=== PATIENT | male | born 1970 | race African-American/Black ===

== ENCOUNTER 2016-06-27 10:41 | Inpatient (IN) | payer OTHER ==
[2016-06-27 11:39] VITALS: BMI 35.2
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
--- NOTE | 2016-06-27 14:06 | PN ---
[facility] Progress Note Note: attempted to reach [facility] for further information unsuccessful
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
[2016-06-27] MEDS ORDERED: LOPERAMIDE HCL 2 MG CAPSULE PO PRN (19:40)
[2016-06-27] MEDS ORDERED: P-EPHED 60MG/TRIPROLIDI 2.5MG TABLET PO PRN (19:40)
[2016-06-27] MEDS ORDERED: hydrOXYzine PAMOATE 50 MG CAPSULE (FP) PO PRN (19:40)
[2016-06-27] MEDS ORDERED: MAG HYDROX/AL HYDROX/SIMETH 30 ML UNIT-DOSE CUP PO PRN (19:40)
[2016-06-27] MEDS ORDERED: MAGNESIUM HYDROX 2400MG/30ML ORAL SUSPENSION 30 ML CUP PO PRN (19:40)
[2016-06-27] MEDS ORDERED: guaiFENesin/D-METHORPHAN HB 10 ML UNIT-DOSE CUPS PO PRN (19:40)
[2016-06-27] MEDS ORDERED: MAGNESIUM CITRATE 300 ML BOTTLE PO PRN (19:40)
[2016-06-27] MEDS ORDERED: diazePAM 5 MG TABLET PO ONE (19:40)
[2016-06-27] MEDS ORDERED: MENTHOL/PHENOL 1 EACH UD MM PRN (19:40)
[2016-06-27] MEDS ORDERED: ALBUTEROL SO4 6.7 GM HFA INHALER IH PRN (19:43)
[2016-06-27] MEDS: LISINOPRIL 10 MG TABLET (FP) PO SCH (20:17)
[2016-06-27] MEDS: amLODIPine BESYLATE 10 MG TABLET (FP) PO SCH (20:17)
[2016-06-27] MEDS: THIAMINE HCL 100 MG TABLET (FP) PO SCH (22:42)
[2016-06-27] MEDS: BUDESONIDE/FORMETEROL FUMARATE 80/4.5 mcg INHALER IH SCH (22:42)
[2016-06-27] MEDS: MONTELUKAST NA 10 MG TABLET PO SCH (22:43)
[2016-06-27] MEDS: diazePAM 5 MG TABLET PO SCH (22:43)
[2016-06-27] MEDS: diphenhydrAMINE HCL 50 MG CAPSULE PO PRN (22:45)
[2016-06-27] MEDS: CEPHALEXIN MONOHYDRATE 500 MG CAPSULE (UD) PO SCH (23:23)
[2016-06-27] MEDS: OXYMETAZOLINE 0.05% NASAL SOLUTION 15 ML BOTTLE NS SCH (23:26)
[2016-06-27] MEDS: CIPROFLOXACIN HCL 0.3% OPHTH 2.5ML BOTTLE OU SCH (23:27)
[2016-06-28 01:12] LABS: URINE APPEARANCE CLEAR; URINE BILIRUBIN NEGATIVE (NEGATIVE); URINE BLOOD NEGATIVE (NEGATIVE); URINE COLOR LTYELLOW; URINE GLUCOSE (UA) NEGATIVE (NEGATIVE); URINE KETONE TRACE (NEGATIVE); URINE LEUK ESTERASE NEGATIVE (NEGATIVE); URINE NITRITE NEGATIVE (NEGATIVE); URINE PROTEIN NEGATIVE (NEGATIVE); URINE UROBILINOGEN 2.0 E.U/dl E.U./dl (0.2-1.0)
[2016-06-28] MEDS: CIPROFLOXACIN HCL 0.3% OPHTH 2.5ML BOTTLE OU SCH ×4 (02:30→18:05)
[2016-06-28] MEDS: diazePAM 5 MG TABLET PO SCH ×3 (05:43→22:43)
[2016-06-28] MEDS: CEPHALEXIN MONOHYDRATE 500 MG CAPSULE (UD) PO SCH ×3 (05:43→18:01)
[2016-06-28 09:46] LABS: MCH 30.9 pg (25.7-33.7); MCHC 34.3 g/dl (32.0-35.9); MEAN PLT VOLUME 10.2 fl (7.5-11.1); PLATELET COUNT 193 K/MM3 (134-434); RDW 13.2 % (11.9-15.9); WHITE BLOOD COUNT 9.4 K/mm3 (4.0-10.0)
[2016-06-28 10:26] LABS: ALBUMIN 3.6 g/dl (3.4-5.0); ALK PHOS 103 U/L (45-117); ANION GAP 15 (8-16); CALCIUM 8.7 mg/dL (8.5-10.1); CO2 24 mmol/L (21-32); COCKROFT - GAULT 222.29; CREATININE 0.7 mg/dL (0.7-1.3); GLUCOSE,RANDOM 92 mg/dL (74-106); SGOT/AST 32 U/L (15-37); SGPT/ALT 31 U/L (12-78); TOT PROT 6.9 g/dl (6.4-8.2)
[2016-06-28] MEDS: PRENATAL VITAMINS W/ FOLIC ACID TABLET (FP) PO SCH (10:54)
[2016-06-28] MEDS: ASPIRIN 81 MG CHEWABLE TABLETS PO SCH (10:54)
[2016-06-28] MEDS: HALOPERIDOL 5 MG TABLET (FP) PO SCH ×2 (10:54→22:42)
[2016-06-28] MEDS: amLODIPine BESYLATE 10 MG TABLET (FP) PO SCH (10:54)
[2016-06-28] MEDS: LISINOPRIL 10 MG TABLET (FP) PO SCH (10:55)
[2016-06-28] MEDS: BENZTROPINE MESYLATE 1 MG TABLET (FP) PO SCH ×2 (10:55→22:43)
[2016-06-28] MEDS: BUDESONIDE/FORMETEROL FUMARATE 80/4.5 mcg INHALER IH SCH ×2 (10:56→22:43)
--- NOTE | 2016-06-28 11:03 | PN ---
[facility] CIWA - CIWA Score Nausea/Vomitin-No Nausea/No Vomiting Muscle Tremors: 4-Moderate,w/Arms Extend Anxiety: 4-Mod. Anxious/Guarded Agitation: 4-Moderately Restless Paroxysmal Sweats: 1-Minimal Palms Moist Orientation: 0-Oriented Tacttile Disturbances: 3-Moderate Itch/Numb/Burn Auditory Disturbances: 0-None Visual Disturbances: 0-None Headache: 0-None Present CIWA-Ar Total Score: 16 [facility] Progress Note (SOAP) Subjective: ANXIETY,TEARY EYES W/ C/O PAIN BOTH EYES. TREMORS,ANXIETY,INTERMITTENT SLEEP. Objective: 06/28/16 11:02 Vital Signs Temperature 97.1 F L 06/28/16 09:28 Pulse Rate 85 06/28/16 09:28 Respiratory Rate 18 06/28/16 09:28 Blood Pressure 130/87 06/28/16 09:28 O2 Sat by Pulse Oximetry (%) Laboratory Last Values WBC 9.4 K/mm3 (4.0-10.0) 06/28/16 06:00 RBC 4.03 M/mm3 (4.00-5.60) 06/28/16 06:00 Hgb 12.5 GM/dL (11.7-16.9) 06/28/16 06:00 Hct 36.3 % (35.4-49) 06/28/16 06:00 MCV 90.0 fl (80-96) 06/28/16 06:00 MCHC 34.3 g/dl (32.0-35.9) 06/28/16 06:00 RDW 13.2 % (11.9-15.9) D 06/28/16 06:00 Plt Count 193 K/MM3 (134-434) D 06/28/16 06:00 MPV 10.2 fl (7.5-11.1) D 06/28/16 06:00 Sodium 137 mmol/L (136-145) 06/28/16 06:00 Potassium 3.4 mmol/L (3.5-5.1) L 06/28/16 06:00 Chloride 98 mmol/L (98-107) 06/28/16 06:00 Carbon Dioxide 24 mmol/L (21-32) 06/28/16 06:00 Anion Gap 15 (8-16) 06/28/16 06:00 BUN 9 mg/dL (7-18) D 06/28/16 06:00 Creatinine 0.7 mg/dL (0.7-1.3) D 06/28/16 06:00 Creat Clearance w eGFR > 60 (>60) 06/28/16 06:00 POC Glucometer 140 UNITS (()) 06/28/16 05:44 Random Glucose 92 mg/dL (74-106) 06/28/16 06:00 Calcium 8.7 mg/dL (8.5-10.1) 06/28/16 06:00 Total Bilirubin 1.0 mg/dL (0.2-1.0) D 06/28/16 06:00 AST 32 U/L (15-37) D 06/28/16 06:00 ALT 31 U/L (12-78) D 06/28/16 06:00 Alkaline Phosphatase 103 U/L (45-117) 06/28/16 06:00 Total Protein 6.9 g/dl (6.4-8.2) 06/28/16 06:00 Albumin 3.6 g/dl (3.4-5.0) 06/28/16 06:00 Urine Color Ltyellow 06/27/16 23:02 Urine Appearance Clear 06/27/16 23:02 Urine pH 7.0 (5.0-8.0) 06/27/16 23:02 Ur Specific [place] 1.005 (1.001-1.035) 06/27/16 23:02 Urine Protein Negative (NEGATIVE) 06/27/16 23:02 Urine Glucose (UA) Negative (NEGATIVE) 06/27/16 23:02 Urine Ketones Trace (NEGATIVE) H 06/27/16 23:02 Urine Blood Negative (NEGATIVE) 06/27/16 23:02 Urine Nitrite Negative (NEGATIVE) 06/27/16 23:02 Urine Bilirubin Negative (NEGATIVE) 06/27/16 23:02 Urine Urobilinogen 2.0 e.u/dl E.U./dl (0.2-1.0) 06/27/16 23:02 Ur Leukocyte Esterase Negative (NEGATIVE) 06/27/16 23:02 Assessment: 06/28/16 11:03 WITHDRAWAL SX Plan: CONTINUE DETOX KDUR 20 MEQ PO BID DIRECTED CONTINUE EYE CARE WITH DROPS.
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
--- NOTE | 2016-06-28 11:47 | EKG ---
Test Reason : Blood Pressure : / mmHG Vent. Rate : 089 BPM Atrial Rate : 089 BPM P-R Int : 142 ms QRS Dur : 096 ms QT Int : 376 ms P-R-T Axes : 057 -11 000 degrees QTc Int : 457 ms NORMAL SINUS RHYTHM MODERATE VOLTAGE CRITERIA FOR LVH, MAY BE NORMAL VARIANT NONSPECIFIC T WAVE ABNORMALITY ABNORMAL ECG NO PREVIOUS ECGS AVAILABLE Confirmed by CIARRA RAY MD ([id number]) on 06/28/2016 11:46:28 AM Referred By: Confirmed By:CIARRA RAY MD
[2016-06-28] MEDS: OXYMETAZOLINE 0.05% NASAL SOLUTION 15 ML BOTTLE NS SCH ×2 (12:03→22:43)
[2016-06-28] MEDS: ACETAMINOPHEN 325 MG TABLET (FP) PO PRN (18:08)
[2016-06-28] MEDS: diazePAM 5 MG TABLET PO PRN (19:48)
[2016-06-28] MEDS: MIRTAZAPINE 15 MG TABLET (FP) PO SCH (22:42)
[2016-06-28] MEDS: MONTELUKAST NA 10 MG TABLET PO SCH (22:43)
[2016-06-28] MEDS: IBUPROFEN 600 MG TABLET (FP) PO PRN (22:44)
[2016-06-28] MEDS: THIAMINE HCL 100 MG TABLET (FP) PO SCH (23:47)
[2016-06-29] MEDS: CEPHALEXIN MONOHYDRATE 500 MG CAPSULE (UD) PO SCH ×5 (00:11→23:07)
[2016-06-29] MEDS: CIPROFLOXACIN HCL 0.3% OPHTH 2.5ML BOTTLE OU SCH ×5 (00:12→23:28)
[2016-06-29] MEDS: diazePAM 5 MG TABLET PO PRN (05:52)
[2016-06-29] MEDS: IBUPROFEN 600 MG TABLET (FP) PO PRN ×3 (05:53→17:58)
[2016-06-29] MEDS: BUDESONIDE/FORMETEROL FUMARATE 80/4.5 mcg INHALER IH SCH ×2 (09:51→22:48)
[2016-06-29] MEDS: diazePAM 5 MG TABLET PO SCH ×2 (09:51→22:49)
[2016-06-29] MEDS: PRENATAL VITAMINS W/ FOLIC ACID TABLET (FP) PO SCH (09:52)
[2016-06-29] MEDS: amLODIPine BESYLATE 10 MG TABLET (FP) PO SCH (09:52)
[2016-06-29] MEDS: BENZTROPINE MESYLATE 1 MG TABLET (FP) PO SCH ×2 (09:52→22:48)
[2016-06-29] MEDS: OXYMETAZOLINE 0.05% NASAL SOLUTION 15 ML BOTTLE NS SCH ×2 (09:52→22:47)
[2016-06-29] MEDS: ASPIRIN 81 MG CHEWABLE TABLETS PO SCH (09:52)
[2016-06-29] MEDS: HALOPERIDOL 5 MG TABLET (FP) PO SCH ×2 (09:54→22:48)
[2016-06-29] MEDS: LISINOPRIL 10 MG TABLET (FP) PO SCH (10:28)
--- NOTE | 2016-06-29 11:06 | PN ---
S CIWA - CIWA Score Nausea/Vomitin-No Nausea/No Vomiting Muscle Tremors: 3 Anxiety: 3 Agitation: 4-Moderately Restless Paroxysmal Sweats: 3 Orientation: 0-Oriented Tacttile Disturbances: 0-None Auditory Disturbances: 0-None Visual Disturbances: 0-None Headache: 0-None Present CIWA-Ar Total Score: 13 [facility] Progress Note (SOAP) Subjective: Anxiety,tremors,sweating,interrupted sleep,restless Objective: 06/29/16 11:05 Vital Signs - 8 hr 06/29/16 06/29/16 06/29/16 03:30 06:51 10:46 Temperature 97.2 F L 98.6 F Pulse Rate 85 80 Respiratory 18 18 18 Rate Blood Pressure 120/83 128/89 Laboratory Tests 06/27/16 06/27/16 06/28/16 13:37 23:02 05:44 WBC RBC Hgb Hct MCV MCHC RDW Plt Count MPV Sodium Potassium Chloride Carbon Dioxide Anion Gap BUN Creatinine Creat Clearance w eGFR POC Glucometer 89 140 Random Glucose Calcium Total Bilirubin AST ALT Alkaline Phosphatase Total Protein Albumin Urine Color Ltyellow Urine Appearance Clear Urine pH 7.0 Ur Specific [place] 1.005 Urine Protein Negative Urine Glucose (UA) Negative Urine Ketones Trace H Urine Blood Negative Urine Nitrite Negative Urine Bilirubin Negative Urine Urobilinogen 2.0 e.u/dl Ur Leukocyte Esterase Negative RPR Titer 06/28/16 06/28/16 06/28/16 06:00 06:00 06:00 WBC 9.4 RBC 4.03 Hgb 12.5 Hct 36.3 MCV 90.0 MCHC 34.3 RDW 13.2 D Plt Count 193 D MPV 10.2 D Sodium 137 Potassium 3.4 L Chloride 98 Carbon Dioxide 24 Anion Gap 15 BUN 9 D Creatinine 0.7 D Creat Clearance w eGFR > 60 POC Glucometer Random Glucose 92 Calcium 8.7 Total Bilirubin 1.0 D AST 32 D ALT 31 D Alkaline Phosphatase 103 Total Protein 6.9 Albumin 3.6 Urine Color Urine Appearance Urine pH Ur Specific [place] Urine Protein Urine Glucose (UA) Urine Ketones Urine Blood Urine Nitrite Urine Bilirubin Urine Urobilinogen Ur Leukocyte Esterase RPR Titer Nonreactive labs noted Assessment: 06/29/16 11:06 Withdrawal sx. Plan: Continue detox
[2016-06-29] MEDS: POTASSIUM CHLORIDE TABS 20 MEQ TABLET.ER (FP) PO SCH (12:41)
[2016-06-29] MEDS: THIAMINE HCL 100 MG TABLET (FP) PO SCH (22:47)
[2016-06-29] MEDS: MONTELUKAST NA 10 MG TABLET PO SCH (22:48)
[2016-06-29] MEDS: MIRTAZAPINE 15 MG TABLET (FP) PO SCH (22:48)
[2016-06-30] MEDS: CEPHALEXIN MONOHYDRATE 500 MG CAPSULE (UD) PO SCH ×4 (05:24→23:02)
[2016-06-30] MEDS: diazePAM 5 MG TABLET PO PRN ×2 (05:24→19:27)
[2016-06-30] MEDS: CIPROFLOXACIN HCL 0.3% OPHTH 2.5ML BOTTLE OU SCH ×4 (06:45→23:02)
[2016-06-30] MEDS: POTASSIUM CHLORIDE TABS 20 MEQ TABLET.ER (FP) PO SCH (10:51)
[2016-06-30] MEDS: diazePAM 5 MG TABLET PO SCH ×2 (10:51→22:34)
[2016-06-30] MEDS: PRENATAL VITAMINS W/ FOLIC ACID TABLET (FP) PO SCH (10:52)
[2016-06-30] MEDS: amLODIPine BESYLATE 10 MG TABLET (FP) PO SCH (10:52)
[2016-06-30] MEDS: BENZTROPINE MESYLATE 1 MG TABLET (FP) PO SCH ×2 (10:52→22:34)
[2016-06-30] MEDS: HALOPERIDOL 5 MG TABLET (FP) PO SCH ×2 (10:52→22:34)
[2016-06-30] MEDS: LISINOPRIL 10 MG TABLET (FP) PO SCH (10:52)
[2016-06-30] MEDS: ASPIRIN 81 MG CHEWABLE TABLETS PO SCH (10:52)
[2016-06-30] MEDS: IBUPROFEN 600 MG TABLET (FP) PO PRN ×2 (10:54→19:27)
[2016-06-30] MEDS: BUDESONIDE/FORMETEROL FUMARATE 80/4.5 mcg INHALER IH SCH ×2 (10:55→23:01)
[2016-06-30] MEDS: OXYMETAZOLINE 0.05% NASAL SOLUTION 15 ML BOTTLE NS SCH ×2 (10:56→22:33)
--- NOTE | 2016-06-30 17:51 | PN ---
[facility] Progress Note (SOAP) Subjective: H/A, Tremors. Objective: PT. A & O X 2 (DISORIENTED ABOUT DAY /DATE). 06/30/16 17:50 Vital Signs Temperature 96 F L 06/30/16 11:42 Pulse Rate 91 H 06/30/16 11:42 Respiratory Rate 19 06/30/16 11:42 Blood Pressure 131/88 06/30/16 11:42 O2 Sat by Pulse Oximetry (%) Laboratory Last Values WBC 9.4 K/mm3 (4.0-10.0) 06/28/16 06:00 RBC 4.03 M/mm3 (4.00-5.60) 06/28/16 06:00 Hgb 12.5 GM/dL (11.7-16.9) 06/28/16 06:00 Hct 36.3 % (35.4-49) 06/28/16 06:00 MCV 90.0 fl (80-96) 06/28/16 06:00 MCHC 34.3 g/dl (32.0-35.9) 06/28/16 06:00 RDW 13.2 % (11.9-15.9) D 06/28/16 06:00 Plt Count 193 K/MM3 (134-434) D 06/28/16 06:00 MPV 10.2 fl (7.5-11.1) D 06/28/16 06:00 Sodium 137 mmol/L (136-145) 06/28/16 06:00 Potassium 3.7 mmol/L (3.5-5.1) 06/30/16 08:00 Chloride 98 mmol/L (98-107) 06/28/16 06:00 Carbon Dioxide 24 mmol/L (21-32) 06/28/16 06:00 Anion Gap 15 (8-16) 06/28/16 06:00 BUN 9 mg/dL (7-18) D 06/28/16 06:00 Creatinine 0.7 mg/dL (0.7-1.3) D 06/28/16 06:00 Creat Clearance w eGFR > 60 (>60) 06/28/16 06:00 POC Glucometer 140 UNITS (()) 06/28/16 05:44 Random Glucose 92 mg/dL (74-106) 06/28/16 06:00 Calcium 8.7 mg/dL (8.5-10.1) 06/28/16 06:00 Total Bilirubin 1.0 mg/dL (0.2-1.0) D 06/28/16 06:00 AST 32 U/L (15-37) D 06/28/16 06:00 ALT 31 U/L (12-78) D 06/28/16 06:00 Alkaline Phosphatase 103 U/L (45-117) 06/28/16 06:00 Total Protein 6.9 g/dl (6.4-8.2) 06/28/16 06:00 Albumin 3.6 g/dl (3.4-5.0) 06/28/16 06:00 Urine Color Ltyellow 06/27/16 23:02 Urine Appearance Clear 06/27/16 23:02 Urine pH 7.0 (5.0-8.0) 06/27/16 23:02 Ur Specific [place] 1.005 (1.001-1.035) 06/27/16 23:02 Urine Protein Negative (NEGATIVE) 06/27/16 23:02 Urine Glucose (UA) Negative (NEGATIVE) 06/27/16 23:02 Urine Ketones Trace (NEGATIVE) H 06/27/16 23:02 Urine Blood Negative (NEGATIVE) 06/27/16 23:02 Urine Nitrite Negative (NEGATIVE) 06/27/16 23:02 Urine Bilirubin Negative (NEGATIVE) 06/27/16 23:02 Urine Urobilinogen 2.0 e.u/dl E.U./dl (0.2-1.0) 06/27/16 23:02 Ur Leukocyte Esterase Negative (NEGATIVE) 06/27/16 23:02 RPR Titer Nonreactive (NONREACTIVE) 06/28/16 06:00 LABS NOTED. Assessment: 06/30/16 17:51 WITHDRAWAL SYMPTOMS. Plan: CONTINUE DETOX. ADVISED PATIENT TO FOLLOW-UP WITH [facility] REHAB MEDICAL PROVIDER AFTER DISCHARGE FROM DETOX FOR GENERAL MEDICAL ASSESSMENT AND FOR ABNORMAL ADMISSION LAB VALUES.
[2016-06-30] MEDS: THIAMINE HCL 100 MG TABLET (FP) PO SCH (22:34)
[2016-06-30] MEDS: MIRTAZAPINE 15 MG TABLET (FP) PO SCH (22:34)
[2016-06-30] MEDS: MONTELUKAST NA 10 MG TABLET PO SCH (22:34)
[2016-06-30] MEDS: diphenhydrAMINE HCL 50 MG CAPSULE PO PRN (22:36)
[2016-07-01] MEDS: CEPHALEXIN MONOHYDRATE 500 MG CAPSULE (UD) PO SCH ×4 (05:02→23:47)
[2016-07-01] MEDS: IBUPROFEN 600 MG TABLET (FP) PO PRN (05:03)
[2016-07-01] MEDS: CIPROFLOXACIN HCL 0.3% OPHTH 2.5ML BOTTLE OU SCH ×4 (05:06→23:47)
[2016-07-01] MEDS ORDERED: diazePAM 5 MG TABLET PO SCH (10:00)
[2016-07-01] MEDS: BUDESONIDE/FORMETEROL FUMARATE 80/4.5 mcg INHALER IH SCH ×2 (10:36→22:36)
[2016-07-01] MEDS: PRENATAL VITAMINS W/ FOLIC ACID TABLET (FP) PO SCH (10:36)
[2016-07-01] MEDS: BENZTROPINE MESYLATE 1 MG TABLET (FP) PO SCH ×2 (10:36→22:30)
[2016-07-01] MEDS: HALOPERIDOL 5 MG TABLET (FP) PO SCH ×2 (10:36→22:35)
[2016-07-01] MEDS: POTASSIUM CHLORIDE TABS 20 MEQ TABLET.ER (FP) PO SCH (10:36)
[2016-07-01] MEDS: LISINOPRIL 10 MG TABLET (FP) PO SCH ×2 (10:36→22:35)
[2016-07-01] MEDS: ASPIRIN 81 MG CHEWABLE TABLETS PO SCH (10:36)
[2016-07-01] MEDS: amLODIPine BESYLATE 10 MG TABLET (FP) PO SCH (10:36)
[2016-07-01] MEDS: OXYMETAZOLINE 0.05% NASAL SOLUTION 15 ML BOTTLE NS SCH ×2 (10:37→22:34)
--- NOTE | 2016-07-01 12:17 | PN ---
S Progress Note (SOAP) Subjective: nausea, sweats, interrupted sleep, anxiety, tremors a and o x3 Objective: 07/01/16 12:16 Vital Signs - 24 hr 06/30/16 06/30/16 07/01/16 18:09 21:57 00:30 Temperature 98.3 F 98.7 F Pulse Rate 78 93 H Respiratory 18 18 18 Rate Blood Pressure 127/86 138/93 07/01/16 07/01/16 07/01/16 03:30 06:20 10:51 Temperature 96.6 F L 96.9 F L Pulse Rate 80 90 Respiratory 18 16 18 Rate Blood Pressure 139/95 144/97 tachycardic, hypertensive Laboratory Tests 06/27/16 06/27/16 06/28/16 13:37 23:02 05:44 WBC RBC Hgb Hct MCV MCHC RDW Plt Count MPV Sodium Potassium Chloride Carbon Dioxide Anion Gap BUN Creatinine Creat Clearance w eGFR POC Glucometer 89 140 Random Glucose Calcium Total Bilirubin AST ALT Alkaline Phosphatase Total Protein Albumin Urine Color Ltyellow Urine Appearance Clear Urine pH 7.0 Ur Specific [place] 1.005 Urine Protein Negative Urine Glucose (UA) Negative Urine Ketones Trace H Urine Blood Negative Urine Nitrite Negative Urine Bilirubin Negative Urine Urobilinogen 2.0 e.u/dl Ur Leukocyte Esterase Negative RPR Titer 06/28/16 06/28/16 06/28/16 06:00 06:00 06:00 WBC 9.4 RBC 4.03 Hgb 12.5 Hct 36.3 MCV 90.0 MCHC 34.3 RDW 13.2 D Plt Count 193 D MPV 10.2 D Sodium 137 Potassium 3.4 L Chloride 98 Carbon Dioxide 24 Anion Gap 15 BUN 9 D Creatinine 0.7 D Creat Clearance w eGFR > 60 POC Glucometer Random Glucose 92 Calcium 8.7 Total Bilirubin 1.0 D AST 32 D ALT 31 D Alkaline Phosphatase 103 Total Protein 6.9 Albumin 3.6 Urine Color Urine Appearance Urine pH Ur Specific [place] Urine Protein Urine Glucose (UA) Urine Ketones Urine Blood Urine Nitrite Urine Bilirubin Urine Urobilinogen Ur Leukocyte Esterase RPR Titer Nonreactive 06/30/16 08:00 WBC RBC Hgb Hct MCV MCHC RDW Plt Count MPV Sodium Potassium 3.7 Chloride Carbon Dioxide Anion Gap BUN Creatinine Creat Clearance w eGFR POC Glucometer Random Glucose Calcium Total Bilirubin AST ALT Alkaline Phosphatase Total Protein Albumin Urine Color Urine Appearance Urine pH Ur Specific [place] Urine Protein Urine Glucose (UA) Urine Ketones Urine Blood Urine Nitrite Urine Bilirubin Urine Urobilinogen Ur Leukocyte Esterase RPR Titer Assessment: 07/01/16 12:16 withdrawal sx persist, repeat k 3.7 Plan: keep for additional 24 hours observation d/c in am
[2016-07-01] MEDS: ACETAMINOPHEN 325 MG TABLET (FP) PO PRN (20:42)
[2016-07-01] MEDS: MIRTAZAPINE 15 MG TABLET (FP) PO SCH (22:35)
[2016-07-01] MEDS: MONTELUKAST NA 10 MG TABLET PO SCH (22:35)
[2016-07-01] MEDS: THIAMINE HCL 100 MG TABLET (FP) PO SCH (22:36)
[2016-07-02] MEDS: IBUPROFEN 600 MG TABLET (FP) PO PRN ×2 (02:01→09:24)
[2016-07-02] MEDS: CEPHALEXIN MONOHYDRATE 500 MG CAPSULE (UD) PO SCH (06:00)
[2016-07-02] MEDS: CIPROFLOXACIN HCL 0.3% OPHTH 2.5ML BOTTLE OU SCH (06:02)
[2016-07-02] MEDS: BUDESONIDE/FORMETEROL FUMARATE 80/4.5 mcg INHALER IH SCH (09:01)
[2016-07-02] MEDS: ASPIRIN 81 MG CHEWABLE TABLETS PO SCH (09:01)
[2016-07-02] MEDS: PRENATAL VITAMINS W/ FOLIC ACID TABLET (FP) PO SCH (09:01)
[2016-07-02] MEDS: amLODIPine BESYLATE 10 MG TABLET (FP) PO SCH (09:02)
[2016-07-02] MEDS: LISINOPRIL 10 MG TABLET (FP) PO SCH (09:02)
[2016-07-02 09:29] VITALS: BP 106/74; PULSE 98; TEMP 97.2
[2016-07-02] MEDS: BENZTROPINE MESYLATE 1 MG TABLET (FP) PO SCH (09:46)
[2016-07-02] MEDS: POTASSIUM CHLORIDE TABS 20 MEQ TABLET.ER (FP) PO SCH (09:46)
[2016-07-02] MEDS: HALOPERIDOL 5 MG TABLET (FP) PO SCH (09:46)
[2016-07-02] MEDS: OXYMETAZOLINE 0.05% NASAL SOLUTION 15 ML BOTTLE NS SCH (09:47)
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
== END 2016-07-02 12:08 | disposition home or self-care (01) | DRG 775 ==
LOC: YASAS 10:41 → Y3N 19:46
PROVIDERS: ADMIT Internal Medicine; ATTEND Internal Medicine
PROC: HZ2ZZZZ Detoxification Services for Substance Abuse Treatment (ICD-10-PCS; principal; 2016-06-27)
DX: F10.230 Alcohol dependence with withdrawal, uncomplicated (principal); J45.30 Mild persistent asthma, uncomplicated; I10 Essential (primary) hypertension; F21 Schizotypal disorder; F31.89 Other bipolar disorder; R73.03 Prediabetes; R00.0 Tachycardia, unspecified; E66.9 Obesity, unspecified; H11.33 Conjunctival hemorrhage, bilateral; Z68.35 Body mass index [BMI] 35.0-35.9, adult; S02.30XD Fracture of orbital floor, unspecified side, subsequent encounter for fracture with routine healing; Y04.0XXD Assault by unarmed brawl or fight, subsequent encounter; Z87.438 Personal history of other diseases of male genital organs
CPT/HCPCS: 36415; 80053; 81003; 84132; 85027; 86593; 93005; 93010

== ENCOUNTER 2016-06-27 14:17 | Emergency (ER) | payer OTHER ==
[2016-06-27 14:27] VITALS: BP 142/90; PULSE 94; TEMP 98; BMI 33.9
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
[2016-06-27] MEDS ORDERED: IBUPROFEN 400 MG TABLET (FP) PO ONE ×2 (18:23→18:24)
== END 2016-06-27 18:25 | disposition home or self-care (01) ==
LOC: JER 14:17
DX: S02.31XA Fracture of orbital floor, right side, initial encounter for closed fracture (principal); S00.83XA Contusion of other part of head, initial encounter; F10.20 Alcohol dependence, uncomplicated; F20.9 Schizophrenia, unspecified; E11.9 Type 2 diabetes mellitus without complications; I10 Essential (primary) hypertension; F31.9 Bipolar disorder, unspecified; Y04.2XXA Assault by strike against or bumped into by another person, initial encounter; Y93.89 Activity, other specified; Y92.89 Other specified places as the place of occurrence of the external cause
CPT/HCPCS: 70450-TC; 70480-TC; 99282-25

== ENCOUNTER 2019-02-18 13:12 | Inpatient (IN) | payer OTHER ==
[2019-02-18 14:49] VITALS: BMI 31.7
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
--- NOTE | 2019-02-18 15:59 | PN ---
Teaching Attending Note Name of Resident: Natalie Delgado ATTENDING PHYSICIAN STATEMENT I saw and evaluated the patient. I reviewed the resident's note and discussed the case with the resident. I agree with the resident's findings and plan as documented. SUBJECTIVE: 48 yo with h/o AUD, homeless here for AUD detox . h/o high BP and asthma, bipolar OBJECTIVE: Vital Signs - 24 hr 02/18/19 14:44 Temperature 97.9 F Pulse Rate 102 H Respiratory 18 Rate Blood Pressure 155/94 tremulous alert and oriented ASSESSMENT AND PLAN: AUD- Ativan detox protocol continue outpt meds
[2019-02-18] MEDS ORDERED: METHOCARBAMOL 500 MG TABLET PO PRN (16:12)
[2019-02-18] MEDS ORDERED: MAG HYDROX/AL HYDROX/SIMETH 30 ML UNIT-DOSE CUP PO PRN (16:12)
[2019-02-18] MEDS ORDERED: BISMUTH SUBSALICYLATE 524 MG/30 ML UD PO PRN (16:12)
[2019-02-18] MEDS ORDERED: MENTHOL/PHENOL 1 EACH UD MM PRN (16:12)
[2019-02-18] MEDS ORDERED: MAGNESIUM HYDROX 2400MG/30ML ORAL SUSPENSION 30 ML CUP PO PRN (16:12)
[2019-02-18] MEDS ORDERED: LORazepam 2 MG TABLET PO ONE (16:12)
[2019-02-18] MEDS ORDERED: IBUPROFEN 400 MG TABLET (FP) PO PRN (16:12)
[2019-02-18] MEDS ORDERED: ACETAMINOPHEN 325 MG TABLET (FP) PO PRN ×2 (16:12)
[2019-02-18] MEDS ORDERED: hydrOXYzine PAMOATE 25 MG CAPSULE (FP) PO PRN (16:12)
[2019-02-18] MEDS ORDERED: MAGNESIUM CITRATE 300 ML BOTTLE PO PRN (16:12)
[2019-02-18] MEDS: LORazepam 2 MG TABLET PO SCH ×2 (17:09→22:11)
[2019-02-18] MEDS: ALBUTEROL SO4 8 GM HFA INHALER IH SCH ×2 (17:14→22:12)
[2019-02-18] MEDS: THIAMINE HCL 100 MG TABLET (FP) PO SCH (22:11)
[2019-02-18] MEDS: BUDESONIDE/FORMETEROL FUMARATE 80/4.5 mcg INHALER IH SCH (22:14)
[2019-02-18] MEDS: MELATONIN 5 MG TABLETS PO PRN (22:15)
[2019-02-19] MEDS: LORazepam 2 MG TABLET PO SCH ×4 (05:48→22:04)
[2019-02-19 09:47] LABS: HEMATOCRIT 40.5 % (35.4-49); HEMOGLOBIN 13.4 GM/dL (11.7-16.9); MCH 31.9 pg (25.7-33.7); MEAN CELL VOLUME 96.6 fl (80-96); MEAN PLT VOLUME 9.5 fl (7.5-11.1); PLATELET COUNT 223 K/MM3 (134-434); WHITE BLOOD COUNT 4.9 K/mm3 (4.0-10.0)
--- NOTE | 2019-02-19 10:00 | PN ---
S CIWA - CIWA Score Nausea/Vomitin-Mild Nausea/No Vomiting Muscle Tremors: 2 Anxiety: 2 Agitation: 2 Paroxysmal Sweats: No Perspiration Orientation: 0-Oriented Tacttile Disturbances: 1-Very Mild Itch/Numbness Auditory Disturbances: 0-None Visual Disturbances: 0-None Headache: 2-Mild CIWA-Ar Total Score: 10 S Progress Note (SOAP) Subjective: alert,irritable,anxious,interrupted sleep,tremor,nausea Objective: 02/19/19 09:58 Vital Signs Temperature 97.8 F 02/19/19 09:24 Pulse Rate 85 02/19/19 09:24 Respiratory Rate 18 02/19/19 09:24 Blood Pressure 139/85 02/19/19 09:24 O2 Sat by Pulse Oximetry (%) 02/19/19 09:59 Laboratory Last Values WBC 4.9 K/mm3 (4.0-10.0) 02/19/19 08:00 RBC 4.20 M/mm3 (4.00-5.60) 02/19/19 08:00 Hgb 13.4 GM/dL (11.7-16.9) 02/19/19 08:00 Hct 40.5 % (35.4-49) 02/19/19 08:00 MCV 96.6 fl (80-96) H 02/19/19 08:00 MCH 31.9 pg (25.7-33.7) 02/19/19 08:00 MCHC 33.0 g/dl (32.0-35.9) 02/19/19 08:00 RDW 13.0 % (11.9-15.9) 02/19/19 08:00 Plt Count 223 K/MM3 (134-434) 02/19/19 08:00 MPV 9.5 fl (7.5-11.1) 02/19/19 08:00 labs pending Assessment: 02/19/19 09:59 withdrawal symptom Plan: continue detox ativan regimen
[2019-02-19 10:07] LABS: ALBUMIN 3.2 g/dl (3.4-5.0); BILIRUBIN,TOTAL 0.6 mg/dL (0.2-1); BLOOD UREA NITROGEN 12.6 mg/dL (7-18); CALCIUM 8.8 mg/dL (8.5-10.1); CREATININE 0.8 mg/dL (0.55-1.3); POTASSIUM 3.5 mmol/L (3.5-5.1); TOT PROT 5.8 g/dl (6.4-8.2)
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
[2019-02-19] MEDS ORDERED: BENZTROPINE MESYLATE 2 MG TABLET PO SCH (10:30)
[2019-02-19] MEDS: BUDESONIDE/FORMETEROL FUMARATE 80/4.5 mcg INHALER IH SCH ×2 (10:34→22:04)
[2019-02-19] MEDS: MONTELUKAST NA 10 MG TABLET PO SCH (10:35)
[2019-02-19] MEDS: amLODIPine BESYLATE 10 MG TABLET (FP) PO SCH (10:35)
[2019-02-19] MEDS: KETOCONAZOLE 2% CREAM - 60GM TUBE TP SCH (10:35)
[2019-02-19] MEDS: ALBUTEROL SO4 8 GM HFA INHALER IH SCH ×4 (10:35→22:04)
[2019-02-19] MEDS: PRENATAL VITAMINS W/ FOLIC ACID TABLET (FP) PO SCH (10:35)
[2019-02-19] MEDS: HALOPERIDOL 5 MG TABLET (FP) PO SCH (11:29)
[2019-02-19] MEDS: LORazepam 1 MG TABLET PO PRN (14:10)
[2019-02-19] MEDS: HALOPERIDOL 5 MG TABLET (FP) PO PRN (17:22)
[2019-02-19] MEDS: BENZTROPINE MESYLATE 1 MG TABLET (FP) PO SCH (22:02)
[2019-02-19] MEDS: MIRTAZAPINE 15 MG TABLET (FP) PO SCH (22:03)
[2019-02-19] MEDS: MELATONIN 5 MG TABLETS PO PRN (22:04)
[2019-02-19] MEDS: THIAMINE HCL 100 MG TABLET (FP) PO SCH (22:04)
[2019-02-20] MEDS: LORazepam 2 MG TABLET PO SCH ×3 (05:33→10:14)
[2019-02-20] MEDS: LORazepam 1 MG TABLET PO SCH ×4 (05:33→23:44)
--- NOTE | 2019-02-20 09:29 | PN ---
[facility] CIWA - CIWA Score Nausea/Vomitin-Mild Nausea/No Vomiting Muscle Tremors: 2 Anxiety: 2 Agitation: 2 Paroxysmal Sweats: No Perspiration Orientation: 0-Oriented Tacttile Disturbances: 1-Very Mild Itch/Numbness Auditory Disturbances: 0-None Visual Disturbances: 0-None Headache: 1-Very Mild CIWA-Ar Total Score: 9 S Progress Note (SOAP) Subjective: alert,irritable,anxious,interrupted sleep,poain in the body,poor appetite Objective: 02/20/19 09:28 Vital Signs Temperature 98.6 F 02/20/19 06:06 Pulse Rate 81 02/20/19 06:06 Respiratory Rate 18 02/20/19 06:06 Blood Pressure 124/89 02/20/19 06:06 O2 Sat by Pulse Oximetry (%) Laboratory Last Values WBC 4.9 K/mm3 (4.0-10.0) 02/19/19 08:00 RBC 4.20 M/mm3 (4.00-5.60) 02/19/19 08:00 Hgb 13.4 GM/dL (11.7-16.9) 02/19/19 08:00 Hct 40.5 % (35.4-49) 02/19/19 08:00 MCV 96.6 fl (80-96) H 02/19/19 08:00 MCH 31.9 pg (25.7-33.7) 02/19/19 08:00 MCHC 33.0 g/dl (32.0-35.9) 02/19/19 08:00 RDW 13.0 % (11.9-15.9) 02/19/19 08:00 Plt Count 223 K/MM3 (134-434) 02/19/19 08:00 MPV 9.5 fl (7.5-11.1) 02/19/19 08:00 Sodium 141 mmol/L (136-145) 02/19/19 08:00 Potassium 3.5 mmol/L (3.5-5.1) 02/19/19 08:00 Chloride 105 mmol/L (98-107) 02/19/19 08:00 Carbon Dioxide 28 mmol/L (21-32) 02/19/19 08:00 Anion Gap 7 MMOL/L (8-16) L 02/19/19 08:00 BUN 12.6 mg/dL (7-18) 02/19/19 08:00 Creatinine 0.8 mg/dL (0.55-1.3) 02/19/19 08:00 Est GFR (CKD-EPI)AfAm 123.29 02/19/19 08:00 Est GFR (CKD-EPI)NonAf 106.38 02/19/19 08:00 Random Glucose 90 mg/dL (74-106) 02/19/19 08:00 Calcium 8.8 mg/dL (8.5-10.1) 02/19/19 08:00 Total Bilirubin 0.6 mg/dL (0.2-1) 02/19/19 08:00 AST 26 U/L (15-37) 02/19/19 08:00 ALT 36 U/L (13-61) 02/19/19 08:00 Alkaline Phosphatase 75 U/L (45-117) 02/19/19 08:00 Total Protein 5.8 g/dl (6.4-8.2) L 02/19/19 08:00 Albumin 3.2 g/dl (3.4-5.0) L 02/19/19 08:00 RPR Titer Nonreactive (NONREACTIVE) 02/19/19 08:00 Assessment: 02/20/19 09:29 withdrawal symptom Plan: continue detox ativan regimen
[2019-02-20] MEDS: HALOPERIDOL 5 MG TABLET (FP) PO SCH (10:08)
[2019-02-20] MEDS: amLODIPine BESYLATE 10 MG TABLET (FP) PO SCH (10:08)
[2019-02-20] MEDS: BENZTROPINE MESYLATE 1 MG TABLET (FP) PO SCH ×2 (10:08→21:10)
[2019-02-20] MEDS: PRENATAL VITAMINS W/ FOLIC ACID TABLET (FP) PO SCH (10:08)
[2019-02-20] MEDS: KETOCONAZOLE 2% CREAM - 60GM TUBE TP SCH (10:09)
[2019-02-20] MEDS: BUDESONIDE/FORMETEROL FUMARATE 80/4.5 mcg INHALER IH SCH ×2 (10:09→22:23)
[2019-02-20] MEDS: MONTELUKAST NA 10 MG TABLET PO SCH (10:11)
[2019-02-20] MEDS: ALBUTEROL SO4 8 GM HFA INHALER IH SCH ×4 (10:18→22:23)
[2019-02-20] MEDS: LORazepam 1 MG TABLET PO PRN ×2 (12:56→21:10)
[2019-02-20] MEDS: MIRTAZAPINE 15 MG TABLET (FP) PO SCH (21:09)
[2019-02-20] MEDS: THIAMINE HCL 100 MG TABLET (FP) PO SCH (21:09)
[2019-02-20] MEDS: MELATONIN 5 MG TABLETS PO PRN (21:10)
[2019-02-20] MEDS: HALOPERIDOL 5 MG TABLET (FP) PO PRN (23:35)
[2019-02-21] MEDS ORDERED: LORazepam 0.5 MG TABLET PO PRN
[2019-02-21] MEDS: LORazepam 1 MG TABLET PO SCH ×3 (02:12→11:19)
[2019-02-21] MEDS: LORazepam 0.5 MG TABLET PO SCH ×2 (05:30→11:19)
[2019-02-21] MEDS: BENZTROPINE MESYLATE 1 MG TABLET (FP) PO SCH (11:18)
[2019-02-21] MEDS: MONTELUKAST NA 10 MG TABLET PO SCH (11:18)
[2019-02-21] MEDS: PRENATAL VITAMINS W/ FOLIC ACID TABLET (FP) PO SCH (11:18)
[2019-02-21] MEDS: amLODIPine BESYLATE 10 MG TABLET (FP) PO SCH (11:18)
[2019-02-21] MEDS: HALOPERIDOL 5 MG TABLET (FP) PO SCH (11:19)
[2019-02-21] MEDS: BUDESONIDE/FORMETEROL FUMARATE 80/4.5 mcg INHALER IH SCH (11:20)
[2019-02-21] MEDS: ALBUTEROL SO4 8 GM HFA INHALER IH SCH ×2 (11:20→12:59)
[2019-02-21] MEDS: KETOCONAZOLE 2% CREAM - 60GM TUBE TP SCH (11:20)
[2019-02-21 13:22] VITALS: BP 150/104; PULSE 105; TEMP 97.3
--- NOTE | 2019-02-21 14:54 | DS ---
[facility] Detox Discharge Summary Admission Date: 02/18/19 Discharge Date: 02/21/19 - History Present History: Alcohol Dependence, Cannabis Dependence Additional Comments: PATIENT REPORTS PERSONAL ISSUES THAT HE MUST ATTEND TO AND THAT HE DOES NOT WISH TO REMAIN TO COMPLETE DETOX REGIMEN. RISKS OF LEAVING DETOX UNIT AGAINST MEDICAL ADVICE AND PRIOR TO COMPLETION OF DETOX REGIMEN EXPLAINED TO PATIENT. PATIENT ADVISED TO GO IMMEDIATELY TO NEAREST ER SHOULD ANY INTOLERABLE WITHDRAWAL / DETOX SYMPTOMS DEVELOP AT ANY TIME. PATIENT VERBALIZED UNDERSTANDING OF ALL INFORMATION / RECOMMENDATIONS PRESENTED TO HIM PRIOR TO DEPARTURE FROM DETOX UNIT. PATIENT DECLINED OFFER OF MEDICATION PRESCRIPTION FOR HOME MEDICATION AT TIME IN WHICH HE WAS PREPARING TO LEAVE DETOX UNIT, NOTING THAT HE CURRENTLY HAS ADEQUATE SUPPLIES OF ALL PRESCRIBED HOME MEDICATIONS AT HOME. Pertinent Past History: Asthma, History Of Anemia, Depression, Bipolar Disorder, Borderline Diabetes, History of Closed Fracture of Orbital Floor, Schizoaffective Disorder. - Physical Exam Results Vital Signs: Vital Signs Temperature 97.3 F L 02/21/19 13:21 Pulse Rate 105 H 02/21/19 13:21 Respiratory Rate 18 02/21/19 13:21 Blood Pressure 150/104 H 02/21/19 13:21 O2 Sat by Pulse Oximetry (%) Pertinent Admission Physical Exam Findings: WITHDRAWAL SYMPTOMS. Laboratory Tests 02/19/19 02/19/19 02/19/19 08:00 08:00 08:00 WBC 4.9 RBC 4.20 Hgb 13.4 Hct 40.5 MCV 96.6 H MCH 31.9 MCHC 33.0 RDW 13.0 Plt Count 223 MPV 9.5 Sodium 141 Potassium 3.5 Chloride 105 Carbon Dioxide 28 Anion Gap 7 L BUN 12.6 Creatinine 0.8 Est GFR (CKD-EPI)AfAm 123.29 Est GFR (CKD-EPI)NonAf 106.38 Random Glucose 90 Calcium 8.8 Total Bilirubin 0.6 AST 26 ALT 36 Alkaline Phosphatase 75 Total Protein 5.8 L Albumin 3.2 L RPR Titer Nonreactive LABS NOTED. - Medication Discharge Medications: Ambulatory Orders Benztropine Mesylate [Cogentin -] 2 mg PO BID #60 tablet 06/28/16 Haloperidol [Haldol -] 10 mg PO DAILY #30 tablet 06/28/16 Mirtazapine [Remeron -] 45 mg PO HS #30 tablet 06/28/16 Amlodipine Besylate [Norvasc -] 10 mg PO DAILY #30 mg 07/02/16 Budesonide/Formeterol Fumarate [SYMBICORT 80/4.5mcg -] 1 inh IH BID #1 inh 07/02 Albuterol Sulfate Inhaler - [Ventolin HFA Inhaler -] 2 puff IH QID 02/18/19 Haloperidol [Haldol -] 5 mg PO TID 02/18/19 Ketoconazole 2% Cream [Nizoral 2% Cream -] 1 applic TP DAILY 02/18/19 Montelukast Sodium [Singulair] 10 mg PO DAILY 02/18/19 - Diagnosis (1) Alcohol dependence with uncomplicated withdrawal Status: Acute (2) Cannabis dependence Status: Acute (3) Substance-induced anxiety disorder Status: Acute (4) Substance-induced sleep disorder Status: Acute (5) Asthma Status: Chronic Qualifiers: Asthma severity: unspecified severity Asthma persistence: unspecified Asthma complication type: uncomplicated Qualified Code(s): J45.909 - Unspecified asthma, uncomplicated (6) Bipolar disorder Status: Chronic Qualifiers: Active/Remission status: remission status unspecified Qualified Code(s): F31.9 - Bipolar disorder, unspecified (7) Borderline diabetes Status: Chronic (8) HTN (hypertension) Status: Chronic Qualifiers: Hypertension type: essential hypertension (9) Anemia Status: Resolved Qualifiers: Anemia type: unspecified type Qualified Code(s): D64.9 - Anemia, unspecified (10) Orbital floor (blow-out) closed fracture Status: Resolved (11) Schizoaffective disorder Status: Ruled-out Qualifiers: Schizoaffective disorder type: unspecified Qualified Code(s): F25.9 - Schizoaffective disorder, unspecified - AMA Did Patient Leave Against Medical Advice: Yes (PT HAD PERSONAL ISSUES AND DID NOT WISH TO REMAIN TO COMPLETE DETOX.)
[2019-02-22] MEDS ORDERED: LORazepam 0.5 MG TABLET PO ONE (05:00)
== END 2019-02-21 13:05 | disposition left against medical advice (07) | DRG 770 ==
LOC: YASAS 13:12 → Y6N 16:34
PROVIDERS: ADMIT Allergy & Immunology; ATTEND Allergy & Immunology
PROC: HZ2ZZZZ Detoxification Services for Substance Abuse Treatment (ICD-10-PCS; principal; 2019-02-15)
DX: F10.230 Alcohol dependence with withdrawal, uncomplicated (principal); F12.20 Cannabis dependence, uncomplicated; F19.282 Other psychoactive substance dependence with psychoactive substance-induced sleep disorder; F19.280 Other psychoactive substance dependence with psychoactive substance-induced anxiety disorder; F31.9 Bipolar disorder, unspecified; J45.909 Unspecified asthma, uncomplicated; I10 Essential (primary) hypertension; E11.9 Type 2 diabetes mellitus without complications; E66.9 Obesity, unspecified; Z68.31 Body mass index [BMI] 31.0-31.9, adult; Z87.891 Personal history of nicotine dependence; Z86.2 Personal history of diseases of the blood and blood-forming organs and certain disorders involving the immune mechanism; Z86.19 Personal history of other infectious and parasitic diseases; Z87.828 Personal history of other (healed) physical injury and trauma; Z88.8 Allergy status to other drugs, medicaments and biological substances; Z91.013 Allergy to seafood
CPT/HCPCS: 36415; 80053; 85027; 86593

== ENCOUNTER 2020-09-04 12:13 | Inpatient (IN) | payer OTHER ==
[2020-09-04 12:47] VITALS: BMI 28.0
[2020-09-04] MEDS ORDERED: MAGNESIUM CITRATE 300 ML BOTTLE PO PRN (15:36)
[2020-09-04] MEDS ORDERED: NICOTINE POLACRILEX 2 MG GUM BUC PRN (15:36)
[2020-09-04] MEDS ORDERED: MAGNESIUM HYDROX 2400MG/30ML ORAL SUSPENSION 30 ML CUP PO PRN (15:36)
[2020-09-04] MEDS ORDERED: BISMUTH SUBSALICYLATE 524 MG/30 ML PO PRN (15:36)
[2020-09-04] MEDS ORDERED: MENTHOL/PHENOL 1 EACH UD MM PRN (15:36)
[2020-09-04] MEDS ORDERED: ACETAMINOPHEN 325 MG TABLET (FP) PO PRN ×2 (15:36)
[2020-09-04] MEDS ORDERED: MAG HYDROX/AL HYDROX/SIMETH 30 ML UNIT-DOSE CUP PO PRN (15:36)
[2020-09-04] MEDS ORDERED: diazePAM 5 MG TABLET PO PRN (15:36)
[2020-09-04] MEDS ORDERED: ONDANSETRON *ODT* 4 MG TABLET SL PRN (15:36)
[2020-09-04] MEDS ORDERED: hydrOXYzine PAMOATE 25 MG CAPSULE (FP) PO SCH (18:00)
[2020-09-04] MEDS: IBUPROFEN 400 MG TABLET (FP) PO PRN (19:30)
[2020-09-04] MEDS: ALBUTEROL SO4 HFA INHALER IH PRN (19:32)
[2020-09-04] MEDS: NICOTINE 21 MG/24 HOURS TOPICAL PATCH TD SCH (19:35)
[2020-09-04] MEDS: diazePAM 5 MG TABLET PO SCH (22:04)
[2020-09-04] MEDS: MONTELUKAST NA 10 MG TABLET PO SCH (22:04)
[2020-09-04] MEDS: THIAMINE HCL 100 MG TABLET (FP) PO SCH (22:04)
[2020-09-04] MEDS: MELATONIN 5 MG TABLETS PO SCH (22:04)
[2020-09-04] MEDS: BUDESONIDE/FORMETEROL FUMARATE 80/4.5 mcg INHALER IH SCH (22:05)
[2020-09-04] MEDS: TOLNAFTATE 1% CREAM 15 GM TUBE TP SCH (22:05)
[2020-09-05] MEDS: diazePAM 5 MG TABLET PO SCH ×4 (05:13→22:12)
[2020-09-05] MEDS ORDERED: cloNIDine HCL 0.1 MG TABLET PO ONE (05:36)
[2020-09-05] MEDS: HYDROCHLOROTHIAZIDE 25 MG TABLET (FP) PO SCH (06:01)
[2020-09-05] MEDS: BUDESONIDE/FORMETEROL FUMARATE 80/4.5 mcg INHALER IH SCH ×2 (09:38→23:13)
[2020-09-05] MEDS: IBUPROFEN 400 MG TABLET (FP) PO PRN ×2 (09:38→17:46)
[2020-09-05] MEDS: hydrOXYzine PAMOATE 25 MG CAPSULE (FP) PO PRN (09:38)
[2020-09-05] MEDS: amLODIPine BESYLATE 10 MG TABLET (FP) PO SCH (09:38)
[2020-09-05] MEDS: METHOCARBAMOL 500 MG TABLET PO PRN (09:38)
[2020-09-05] MEDS: NICOTINE 21 MG/24 HOURS TOPICAL PATCH TD SCH (09:39)
[2020-09-05] MEDS: TOLNAFTATE 1% CREAM 15 GM TUBE TP SCH ×2 (09:39→23:13)
[2020-09-05] MEDS: PRENATAL VITAMINS W/ FOLIC ACID TABLET (FP) PO SCH (09:39)
[2020-09-05] MEDS ORDERED: cloNIDine HCL 0.1 MG TABLET PO PRN (10:25)
[2020-09-05 10:36] LABS: HEMATOCRIT 35.7 % (35.4-49); HEMOGLOBIN 11.8 GM/dL (11.7-16.9); MCH 31.9 pg (25.7-33.7); MCHC 33.1 g/dl (32.0-35.9); MEAN CELL VOLUME 96.4 fl (80-96); MEAN PLT VOLUME 8.4 fl (7.5-11.1); PLATELET COUNT 186 10^3/uL (134-434); RBC 3.71 M/mm3 (4.00-5.60); RDW 15.1 % (11.9-15.9); WHITE BLOOD COUNT 8.3 K/mm3 (4.0-10.0)
[2020-09-05] MEDS: LISINOPRIL 10 MG TABLET PO SCH (10:39)
[2020-09-05 11:14] LABS: CALCIUM 8.5 mg/dL (8.5-10.1)
[2020-09-05 11:16] LABS: BILIRUBIN,TOTAL 0.8 mg/dL (0.2-1); BLOOD UREA NITROGEN 13.5 mg/dL (7-18); TOT PROT 5.9 g/dl (6.4-8.2)
[2020-09-05 11:19] LABS: CREATININE 0.7 mg/dL (0.55-1.3)
[2020-09-05] MEDS: MELATONIN 5 MG TABLETS PO SCH (22:12)
[2020-09-05] MEDS: MONTELUKAST NA 10 MG TABLET PO SCH (22:12)
[2020-09-05] MEDS: THIAMINE HCL 100 MG TABLET (FP) PO SCH (22:12)
[2020-09-05] MEDS: QUEtiapine FUMARATE 100 MG TABLET (FP) PO SCH (22:12)
[2020-09-06] MEDS: HYDROCHLOROTHIAZIDE 25 MG TABLET (FP) PO SCH (07:41)
[2020-09-06] MEDS: diazePAM 5 MG TABLET PO SCH ×3 (07:42→22:09)
[2020-09-06] MEDS: IBUPROFEN 400 MG TABLET (FP) PO PRN ×2 (07:43→20:08)
[2020-09-06] MEDS: LISINOPRIL 10 MG TABLET PO SCH (10:30)
[2020-09-06] MEDS: amLODIPine BESYLATE 10 MG TABLET (FP) PO SCH (10:30)
[2020-09-06] MEDS: PRENATAL VITAMINS W/ FOLIC ACID TABLET (FP) PO SCH (10:30)
[2020-09-06] MEDS: TOLNAFTATE 1% CREAM 15 GM TUBE TP SCH ×2 (10:31→22:09)
[2020-09-06] MEDS: NICOTINE 21 MG/24 HOURS TOPICAL PATCH TD SCH (10:31)
[2020-09-06] MEDS: BUDESONIDE/FORMETEROL FUMARATE 80/4.5 mcg INHALER IH SCH ×2 (10:31→22:09)
[2020-09-06] MEDS: MELATONIN 5 MG TABLETS PO SCH (22:09)
[2020-09-06] MEDS: MONTELUKAST NA 10 MG TABLET PO SCH (22:09)
[2020-09-06] MEDS: QUEtiapine FUMARATE 100 MG TABLET (FP) PO SCH (22:09)
[2020-09-06] MEDS: THIAMINE HCL 100 MG TABLET (FP) PO SCH (22:09)
[2020-09-07] MEDS: HYDROCHLOROTHIAZIDE 25 MG TABLET (FP) PO SCH (05:44)
[2020-09-07] MEDS: diazePAM 5 MG TABLET PO SCH ×2 (05:44→17:32)
[2020-09-07] MEDS: LISINOPRIL 10 MG TABLET PO SCH (10:22)
[2020-09-07] MEDS: BUDESONIDE/FORMETEROL FUMARATE 80/4.5 mcg INHALER IH SCH ×2 (10:22→22:29)
[2020-09-07] MEDS: amLODIPine BESYLATE 10 MG TABLET (FP) PO SCH (10:22)
[2020-09-07] MEDS: PRENATAL VITAMINS W/ FOLIC ACID TABLET (FP) PO SCH (10:22)
[2020-09-07] MEDS: NICOTINE 21 MG/24 HOURS TOPICAL PATCH TD SCH (10:22)
[2020-09-07] MEDS: TOLNAFTATE 1% CREAM 15 GM TUBE TP SCH ×2 (10:23→22:30)
[2020-09-07] MEDS: hydrOXYzine PAMOATE 25 MG CAPSULE (FP) PO PRN (16:21)
[2020-09-07] MEDS: THIAMINE HCL 100 MG TABLET (FP) PO SCH (22:26)
[2020-09-07] MEDS: MELATONIN 5 MG TABLETS PO SCH (22:26)
[2020-09-07] MEDS: IBUPROFEN 400 MG TABLET (FP) PO PRN (22:27)
[2020-09-07] MEDS: MONTELUKAST NA 10 MG TABLET PO SCH (22:28)
[2020-09-07] MEDS: QUEtiapine FUMARATE 100 MG TABLET (FP) PO SCH (22:29)
[2020-09-07] MEDS: METHOCARBAMOL 500 MG TABLET PO PRN (22:29)
[2020-09-08] MEDS ORDERED: diazePAM 5 MG TABLET PO ONE (06:00)
[2020-09-08] MEDS: HYDROCHLOROTHIAZIDE 25 MG TABLET (FP) PO SCH (06:39)
[2020-09-08 09:40] VITALS: BP 134/79; PULSE 94; TEMP 97.8
[2020-09-08] MEDS: NICOTINE 21 MG/24 HOURS TOPICAL PATCH TD SCH (09:45)
[2020-09-08] MEDS: amLODIPine BESYLATE 10 MG TABLET (FP) PO SCH (09:45)
[2020-09-08] MEDS: LISINOPRIL 10 MG TABLET PO SCH (09:45)
[2020-09-08] MEDS: TOLNAFTATE 1% CREAM 15 GM TUBE TP SCH (09:45)
[2020-09-08] MEDS: PRENATAL VITAMINS W/ FOLIC ACID TABLET (FP) PO SCH (09:45)
[2020-09-08] MEDS: BUDESONIDE/FORMETEROL FUMARATE 80/4.5 mcg INHALER IH SCH (09:46)
[2020-09-08] MEDS: ALBUTEROL SO4 HFA INHALER IH PRN (09:47)
[2020-09-08 14:07] LABS: HIV INTERPRETATION NEGATIVE (NEGATIVE)
== END 2020-09-08 09:55 | disposition other institution (70) | DRG 775 ==
LOC: YASAS 12:13 → Y6N 18:14
PROVIDERS: ADMIT Allergy & Immunology; ATTEND Allergy & Immunology
PROC: HZ2ZZZZ Detoxification Services for Substance Abuse Treatment (ICD-10-PCS; principal; 2020-09-04)
DX: F10.230 Alcohol dependence with withdrawal, uncomplicated (principal); F19.20 Other psychoactive substance dependence, uncomplicated; F17.210 Nicotine dependence, cigarettes, uncomplicated; F19.280 Other psychoactive substance dependence with psychoactive substance-induced anxiety disorder; F19.282 Other psychoactive substance dependence with psychoactive substance-induced sleep disorder; F31.9 Bipolar disorder, unspecified; I10 Essential (primary) hypertension; J45.20 Mild intermittent asthma, uncomplicated; B35.3 Tinea pedis; R60.0 Localized edema; Z86.19 Personal history of other infectious and parasitic diseases; Z86.2 Personal history of diseases of the blood and blood-forming organs and certain disorders involving the immune mechanism; Z88.8 Allergy status to other drugs, medicaments and biological substances; Z91.013 Allergy to seafood
CPT/HCPCS: 36415; 80053; 85027; 86593; 86780; 87389; C9803; J0735; U0003; U0005

== ENCOUNTER 2022-02-26 14:39 | Inpatient (IN) | payer OTHER ==
[2022-02-26 17:04] VITALS: BMI 21.1
[2022-02-26] MEDS ORDERED: LOPERAMIDE HCL 2 MG CAPSULE PO PRN (18:02)
[2022-02-26] MEDS ORDERED: ONDANSETRON *ODT* 4 MG TABLET SL PRN (18:02)
[2022-02-26] MEDS ORDERED: BISMUTH SUBSALICYLATE 524 MG/30 ML PO PRN (18:02)
[2022-02-26] MEDS ORDERED: MAGNESIUM HYDROX 2400MG/30ML ORAL SUSPENSION 30 ML CUP PO PRN (18:02)
[2022-02-26] MEDS ORDERED: ACETAMINOPHEN 325 MG TABLET (FP) PO PRN ×2 (18:02)
[2022-02-26] MEDS ORDERED: POLYETHYLENE GLYCOL (HEALTHYLAX) 3350 17 GM PACKET PO PRN (18:02)
[2022-02-26] MEDS ORDERED: DICYCLOMINE HCL 10 MG CAPSULE PO PRN (18:02)
[2022-02-26] MEDS: hydrOXYzine PAMOATE 25 MG CAPSULE (FP) PO PRN (19:54)
[2022-02-26] MEDS ORDERED: hydrOXYzine PAMOATE 25 MG CAPSULE (FP) PO ONE (19:57)
[2022-02-26] MEDS: PRENATAL VITAMINS W/ FOLIC ACID TABLET (FP) PO SCH (20:22)
[2022-02-26] MEDS: IBUPROFEN 600 MG TABLET (FP) PO PRN (20:28)
[2022-02-26] MEDS: guaiFENesin 200 MG/10 ML 10 ML UNIT-DOSE CUPS PO PRN (20:29)
[2022-02-26] MEDS: THIAMINE HCL 100 MG TABLET (FP) PO SCH (22:07)
[2022-02-26] MEDS: BUDESONIDE/FORMETEROL FUMARATE 80/4.5 mcg INHALER IH SCH (22:07)
[2022-02-26] MEDS: MELATONIN 5 MG TABLETS PO SCH (22:07)
[2022-02-27] MEDS: guaiFENesin 200 MG/10 ML 10 ML UNIT-DOSE CUPS PO PRN ×2 (08:47→17:32)
[2022-02-27] MEDS: BENZOCAINE/MENTHOL (CHLORASEPTIC ) LOZENGE MM PRN ×2 (08:47→22:12)
[2022-02-27] MEDS ORDERED: LORazepam 1 MG TABLET PO PRN (09:44)
[2022-02-27] MEDS ORDERED: ALBUTEROL SO4 HFA INHALER IH PRN (09:54)
[2022-02-27] MEDS ORDERED: amLODIPine BESYLATE 10 MG TABLET (FP) PO SCH (10:00)
[2022-02-27] MEDS: PRENATAL VITAMINS W/ FOLIC ACID TABLET (FP) PO SCH (10:05)
[2022-02-27] MEDS: amLODIPine BESYLATE 10 MG TABLET (FP) PO SCH (10:05)
[2022-02-27] MEDS: cloNIDine HCL 0.1 MG TABLET PO SCH (10:05)
[2022-02-27] MEDS: IBUPROFEN 400 MG TABLET (FP) PO PRN (10:06)
[2022-02-27] MEDS: LORazepam 2 MG TABLET PO SCH ×3 (10:07→22:10)
[2022-02-27] MEDS: BUDESONIDE/FORMETEROL FUMARATE 80/4.5 mcg INHALER IH SCH ×2 (10:07→22:08)
[2022-02-27 11:05] LABS: HEMATOCRIT 36.6 % (35.4-49); HEMOGLOBIN 11.7 GM/dL (11.7-16.9); MCH 30.9 pg (25.7-33.7); MEAN CELL VOLUME 96.8 fl (80-96); MEAN PLT VOLUME 8.5 fl (7.5-11.1); PLATELET COUNT 355 10^3/uL (134-434); RBC 3.78 M/mm3 (4.00-5.60); RDW 14.5 % (11.9-15.9); WHITE BLOOD COUNT 10.3 K/mm3 (4.0-10.0)
[2022-02-27 12:01] LABS: CALCIUM 9.6 mg/dL (8.5-10.1)
[2022-02-27 12:02] LABS: ALBUMIN 3.3 g/dl (3.4-5.0)
[2022-02-27 12:04] LABS: CREATININE 0.7 mg/dL (0.55-1.3)
[2022-02-27 12:06] LABS: TOT PROT 7.3 g/dl (6.4-8.2)
[2022-02-27 12:15] LABS: BILIRUBIN,TOTAL 0.5 mg/dL (0.2-1)
[2022-02-27] MEDS: IBUPROFEN 600 MG TABLET (FP) PO PRN (17:30)
[2022-02-27 20:07] LABS: HIV INTERPRETATION NEGATIVE (NEGATIVE)
[2022-02-27] MEDS: THIAMINE HCL 100 MG TABLET (FP) PO SCH (22:08)
[2022-02-27] MEDS: MIRTAZAPINE 15 MG TABLET (FP) PO SCH (22:08)
[2022-02-27] MEDS: MELATONIN 5 MG TABLETS PO SCH (22:08)
[2022-02-27] MEDS: QUEtiapine FUMARATE 100 MG TABLET (FP) PO SCH (22:08)
[2022-02-28] MEDS: guaiFENesin 200 MG/10 ML 10 ML UNIT-DOSE CUPS PO PRN ×4 (02:44→22:07)
[2022-02-28] MEDS: ALBUTEROL SO4 HFA INHALER IH PRN (02:46)
[2022-02-28] MEDS: LORazepam 2 MG TABLET PO SCH ×4 (05:28→22:03)
[2022-02-28] MEDS: hydrOXYzine PAMOATE 25 MG CAPSULE (FP) PO PRN (05:31)
[2022-02-28] MEDS: IBUPROFEN 600 MG TABLET (FP) PO PRN (05:34)
[2022-02-28] MEDS: PRENATAL VITAMINS W/ FOLIC ACID TABLET (FP) PO SCH (10:05)
[2022-02-28] MEDS: cloNIDine HCL 0.1 MG TABLET PO SCH (10:05)
[2022-02-28] MEDS: amLODIPine BESYLATE 10 MG TABLET (FP) PO SCH (10:06)
[2022-02-28] MEDS: BUDESONIDE/FORMETEROL FUMARATE 80/4.5 mcg INHALER IH SCH ×2 (10:06→22:06)
[2022-02-28] MEDS: MAG HYDROX/AL HYDROX/SIMETH 30 ML UNIT-DOSE CUP PO PRN (11:37)
[2022-02-28 11:47] LABS: HEMATOCRIT 31.5 % (35.4-49); HEMOGLOBIN 10.5 GM/dL (11.7-16.9); MCH 32.1 pg (25.7-33.7); MCHC 33.2 g/dl (32.0-35.9); MEAN CELL VOLUME 96.7 fl (80-96); MEAN PLT VOLUME 8.2 fl (7.5-11.1); PLATELET COUNT 359 10^3/uL (134-434); RBC 3.26 M/mm3 (4.00-5.60); RDW 14.4 % (11.9-15.9)
[2022-02-28 12:04] LABS: SGOT/AST 28 U/L (15-37); SGPT/ALT 44 U/L (13-61)
[2022-02-28 12:17] LABS: ALK PHOS 109 U/L (45-117)
[2022-02-28] MEDS: HYDROCORTISONE 1% TOPICAL CREAM 30 GM TUBE TP SCH ×2 (14:17→22:20)
[2022-02-28] MEDS: MIRTAZAPINE 15 MG TABLET (FP) PO SCH (22:05)
[2022-02-28] MEDS: THIAMINE HCL 100 MG TABLET (FP) PO SCH (22:05)
[2022-02-28] MEDS: IBUPROFEN 400 MG TABLET (FP) PO PRN (22:07)
[2022-02-28] MEDS: QUEtiapine FUMARATE 100 MG TABLET (FP) PO SCH (22:20)
[2022-02-28] MEDS: MELATONIN 5 MG TABLETS PO SCH (22:20)
[2022-03-01] MEDS: LORazepam 1 MG TABLET PO SCH ×4 (05:49→22:11)
[2022-03-01] MEDS: IBUPROFEN 600 MG TABLET (FP) PO PRN ×2 (05:52→17:34)
[2022-03-01] MEDS: guaiFENesin 200 MG/10 ML 10 ML UNIT-DOSE CUPS PO PRN ×2 (05:52→17:33)
[2022-03-01] MEDS: BUDESONIDE/FORMETEROL FUMARATE 80/4.5 mcg INHALER IH SCH ×2 (10:02→22:09)
[2022-03-01] MEDS: PRENATAL VITAMINS W/ FOLIC ACID TABLET (FP) PO SCH (10:02)
[2022-03-01] MEDS: cloNIDine HCL 0.1 MG TABLET PO SCH (10:03)
[2022-03-01] MEDS: HYDROCORTISONE 1% TOPICAL CREAM 30 GM TUBE TP SCH ×2 (10:03→22:09)
[2022-03-01] MEDS: amLODIPine BESYLATE 10 MG TABLET (FP) PO SCH (10:03)
[2022-03-01] MEDS: MAG HYDROX/AL HYDROX/SIMETH 30 ML UNIT-DOSE CUP PO PRN (10:54)
[2022-03-01] MEDS: LORATADINE 10 MG TABLET PO SCH (13:54)
[2022-03-01] MEDS: TOLNAFTATE 1% CREAM 15 GM TUBE TP SCH ×2 (13:55→22:10)
[2022-03-01] MEDS: QUEtiapine FUMARATE 100 MG TABLET (FP) PO SCH (22:11)
[2022-03-01] MEDS: MELATONIN 5 MG TABLETS PO SCH (22:12)
[2022-03-01] MEDS: MIRTAZAPINE 15 MG TABLET (FP) PO SCH (22:12)
[2022-03-01] MEDS: THIAMINE HCL 100 MG TABLET (FP) PO SCH (22:12)
[2022-03-02] MEDS ORDERED: LORazepam 0.5 MG TABLET PO PRN
[2022-03-02] MEDS: guaiFENesin 200 MG/10 ML 10 ML UNIT-DOSE CUPS PO PRN ×3 (04:54→22:10)
[2022-03-02] MEDS: LORazepam 0.5 MG TABLET PO SCH ×4 (05:28→22:08)
[2022-03-02] MEDS: IBUPROFEN 600 MG TABLET (FP) PO PRN (05:32)
[2022-03-02] MEDS: MAG HYDROX/AL HYDROX/SIMETH 30 ML UNIT-DOSE CUP PO PRN ×2 (07:41→17:51)
[2022-03-02] MEDS: PRENATAL VITAMINS W/ FOLIC ACID TABLET (FP) PO SCH (10:09)
[2022-03-02] MEDS: LORATADINE 10 MG TABLET PO SCH (10:10)
[2022-03-02] MEDS: TOLNAFTATE 1% CREAM 15 GM TUBE TP SCH ×2 (10:10→22:09)
[2022-03-02] MEDS: amLODIPine BESYLATE 10 MG TABLET (FP) PO SCH (10:10)
[2022-03-02] MEDS: BUDESONIDE/FORMETEROL FUMARATE 80/4.5 mcg INHALER IH SCH ×2 (10:10→22:09)
[2022-03-02] MEDS: HYDROCORTISONE 1% TOPICAL CREAM 30 GM TUBE TP SCH ×2 (10:11→22:08)
[2022-03-02] MEDS: cloNIDine HCL 0.1 MG TABLET PO SCH (10:11)
[2022-03-02] MEDS: ALBUTEROL SO4 HFA INHALER IH PRN ×2 (10:13→19:09)
[2022-03-02] MEDS: THIAMINE HCL 100 MG TABLET (FP) PO SCH (22:08)
[2022-03-02] MEDS: MIRTAZAPINE 15 MG TABLET (FP) PO SCH (22:08)
[2022-03-02] MEDS: MELATONIN 5 MG TABLETS PO SCH (22:08)
[2022-03-02] MEDS: QUEtiapine FUMARATE 100 MG TABLET (FP) PO SCH (22:08)
[2022-03-03] MEDS ORDERED: LORazepam 0.5 MG TABLET PO ONE (05:00)
[2022-03-03] MEDS: ALBUTEROL SO4 HFA INHALER IH PRN (05:35)
[2022-03-03] MEDS: guaiFENesin 200 MG/10 ML 10 ML UNIT-DOSE CUPS PO PRN (05:36)
[2022-03-03] MEDS: MAG HYDROX/AL HYDROX/SIMETH 30 ML UNIT-DOSE CUP PO PRN (06:25)
[2022-03-03 09:40] VITALS: BP 133/87; PULSE 108; RESP 19; TEMP 96.8
[2022-03-03] MEDS: BUDESONIDE/FORMETEROL FUMARATE 80/4.5 mcg INHALER IH SCH (09:49)
[2022-03-03] MEDS: TOLNAFTATE 1% CREAM 15 GM TUBE TP SCH (09:49)
[2022-03-03] MEDS: HYDROCORTISONE 1% TOPICAL CREAM 30 GM TUBE TP SCH (09:49)
[2022-03-03] MEDS: LORATADINE 10 MG TABLET PO SCH (09:52)
[2022-03-03] MEDS: cloNIDine HCL 0.1 MG TABLET PO SCH (09:52)
[2022-03-03] MEDS: amLODIPine BESYLATE 10 MG TABLET (FP) PO SCH (09:52)
[2022-03-03] MEDS: PRENATAL VITAMINS W/ FOLIC ACID TABLET (FP) PO SCH (09:53)
== END 2022-03-03 09:53 | disposition home or self-care (01) | DRG 775 ==
LOC: YASAS 14:39 → Y3N 19:52
PROVIDERS: ADMIT Allergy & Immunology; ATTEND Surgery
PROC: HZ2ZZZZ Detoxification Services for Substance Abuse Treatment (ICD-10-PCS; principal; 2022-02-26)
DX: F10.230 Alcohol dependence with withdrawal, uncomplicated (principal); F12.20 Cannabis dependence, uncomplicated; F17.210 Nicotine dependence, cigarettes, uncomplicated; F19.24 Other psychoactive substance dependence with psychoactive substance-induced mood disorder; F25.9 Schizoaffective disorder, unspecified; I10 Essential (primary) hypertension; J45.20 Mild intermittent asthma, uncomplicated; G47.00 Insomnia, unspecified; Z88.8 Allergy status to other drugs, medicaments and biological substances; Z91.013 Allergy to seafood; Z86.59 Personal history of other mental and behavioral disorders; Z86.19 Personal history of other infectious and parasitic diseases; Z56.0 Unemployment, unspecified
CPT/HCPCS: 36415; 80053; 83036; 84075; 84450; 84460; 85027; 86593; 86780; 87389; C9803-CS; U0003; U0005

== ENCOUNTER 2023-10-28 23:20 | Inpatient (IN) | payer OTHER ==
[2023-10-29] MEDS ORDERED: NALOXONE (NARCAN) HCL 4 MG/0.1 ML SPRAY NS PRN (00:15)
[2023-10-29] MEDS ORDERED: BENZONATATE 200 MG CAPSULE PO PRN (00:15)
[2023-10-29] MEDS ORDERED: ACETAMINOPHEN 325 MG TABLET (FP) PO PRN (00:15)
[2023-10-29] MEDS ORDERED: IBUPROFEN 400 MG TABLET (FP) PO PRN (00:15)
[2023-10-29] MEDS ORDERED: NALOXONE HCL 0.4 MG/ML VIAL IM PRN (00:15)
[2023-10-29] MEDS ORDERED: BENZOCAINE/MENTHOL (CHLORASEPTIC ) LOZENGE MM PRN (00:15)
[2023-10-29] MEDS ORDERED: NICOTINE POLACRILEX 4 MG GUM BUC PRN (00:15)
[2023-10-29] MEDS ORDERED: POLYETHYLENE GLYCOL (HEALTHYLAX) 3350 17 GM PACKET PO PRN (00:15)
[2023-10-29] MEDS ORDERED: MAG HYDROX/AL HYDROX/SIMETH 30 ML UNIT-DOSE CUP PO PRN (00:15)
[2023-10-29] MEDS ORDERED: BISMUTH SUBSALICYLATE 524 MG/30 ML PO PRN (00:15)
[2023-10-29] MEDS ORDERED: guaiFENesin 600 MG TABLET.ER (FP) PO PRN (00:15)
[2023-10-29] MEDS ORDERED: MAGNESIUM HYDROX 2400MG/30ML ORAL SUSPENSION 30 ML CUP PO PRN (00:15)
[2023-10-29 00:44] VITALS: BMI 22.1
[2023-10-29] MEDS: ONDANSETRON *ODT* 4 MG TABLET SL PRN (01:00)
[2023-10-29] MEDS: DICYCLOMINE HCL 10 MG CAPSULE PO PRN (01:00)
[2023-10-29] MEDS ORDERED: cloNIDine HCL 0.1 MG TABLET ONE (01:16)
[2023-10-29] MEDS: cloNIDine HCL 0.1 MG TABLET PO ONE (01:18)
[2023-10-29] MEDS: METHOCARBAMOL 500 MG TABLET PO PRN (07:20)
[2023-10-29] MEDS: hydrOXYzine PAMOATE 25 MG CAPSULE (FP) PO PRN (07:21)
[2023-10-29] MEDS: NICOTINE 21 MG/24 HOURS TOPICAL PATCH TD SCH (10:08)
[2023-10-29] MEDS: BUDESONIDE/FORMETEROL FUMARATE 80/4.5 mcg INHALER IH SCH (10:08)
[2023-10-29] MEDS: PRENATAL VITAMINS W/ FOLIC ACID TABLET (FP) PO SCH (10:08)
[2023-10-29] MEDS: amLODIPine BESYLATE 10 MG TABLET (FP) PO SCH (10:09)
[2023-10-29] MEDS: LORazepam 2 MG TABLET PO SCH (10:10)
[2023-10-29 11:36] LABS: HEMATOCRIT 36.7 % (35.4-49); HEMOGLOBIN 12.7 GM/dL (11.7-16.9); MCH 34.9 pg (25.7-33.7); MCHC 34.7 g/dl (32.0-35.9); MEAN CELL VOLUME 100.6 fl (80-96); MEAN PLT VOLUME 7.9 fl (7.5-11.1); PLATELET COUNT 239 10^3/uL (134-434); RBC 3.65 M/mm3 (4.00-5.60); RDW 13.8 % (11.9-15.9); WHITE BLOOD COUNT 5.1 K/mm3 (4.0-10.0)
[2023-10-29 11:55] LABS: CHLORIDE 103 mmol/L (98-107); SODIUM 141 mmol/L (136-145)
[2023-10-29 11:59] LABS: POTASSIUM 2.9 mmol/L (3.5-5.1)
[2023-10-29 12:00] LABS: ALBUMIN 3.3 g/dl (3.4-5.0); ANION GAP 11 mmol/L (4-13); CALCIUM 8.7 mg/dL (8.5-10.1); CO2 28 mmol/L (21-32)
[2023-10-29 12:01] LABS: GLUCOSE,RANDOM 75 mg/dL (74-106)
[2023-10-29 12:03] LABS: SGPT/ALT 39 U/L (13-61)
[2023-10-29 12:04] LABS: CREATININE 0.6 mg/dL (0.55-1.3); SGOT/AST 59 U/L (15-37)
[2023-10-29 12:05] LABS: BILIRUBIN,TOTAL 0.5 mg/dL (0.2-1); TOT PROT 6.4 g/dl (6.4-8.2)
[2023-10-29 12:06] LABS: ALK PHOS 81 U/L (45-117)
[2023-10-29] MEDS: POTASSIUM CHLORIDE ORAL LIQUID 20 MEQ/15 ML PO SCH (13:34)
[2023-10-29] MEDS ORDERED: MIRTAZAPINE 15 MG TABLET (FP) ONE (21:27)
[2023-10-29] MEDS: MELATONIN 5 MG TABLETS PO SCH (22:07)
[2023-10-29] MEDS: THIAMINE 100 MG TABLET PO SCH (22:07)
[2023-10-29] MEDS: QUEtiapine FUMARATE 200 MG TABLET PO SCH (22:08)
[2023-10-29] MEDS: ALBUTEROL SO4 HFA INHALER IH PRN (22:08)
[2023-10-29] MEDS: MIRTAZAPINE 30 MG TABLET PO SCH (22:09)
[2023-10-29] MEDS: IBUPROFEN 600 MG TABLET (FP) PO PRN (22:12)
[2023-10-30] MEDS: POTASSIUM CHLORIDE ORAL LIQUID 20 MEQ/15 ML PO SCH (10:13)
[2023-10-30 13:40] LABS: POTASSIUM 4.1 mmol/L (3.5-5.1)
[2023-10-30 13:44] LABS: BLOOD UREA NITROGEN 6.4 mg/dL (7-18); CALCIUM 8.8 mg/dL (8.5-10.1)
[2023-10-30 13:47] LABS: CREATININE 0.8 mg/dL (0.55-1.3)
[2023-10-30 13:49] LABS: BILIRUBIN,TOTAL 0.6 mg/dL (0.2-1); TOT PROT 6.3 g/dl (6.4-8.2)
[2023-10-30] MEDS: LORazepam 1 MG TABLET PO PRN (19:43)
[2023-10-30] MEDS: LOPERAMIDE HCL 2 MG CAPSULE PO PRN (19:44)
[2023-10-30] MEDS ORDERED: MIRTAZAPINE 15 MG TABLET (FP) ONE (21:53)
[2023-10-30] MEDS: AMOXICILLIN 500 MG CAPSULE (FP) PO SCH (22:01)
[2023-10-31] MEDS: LORazepam 1 MG TABLET PO SCH (05:42)
[2023-10-31] MEDS: hydrOXYzine PAMOATE 50 MG CAPSULE (FP) PO ONE (09:13)
[2023-10-31] MEDS: BENZOCAINE 20 % GEL TUBE MM PRN (10:12)
[2023-10-31 13:22] LABS: HIV INTERPRETATION NEGATIVE (NEGATIVE)
[2023-10-31] MEDS ORDERED: MIRTAZAPINE 15 MG TABLET (FP) ONE (21:17)
[2023-10-31] MEDS: METOPROLOL TARTRATE 25 MG TABLET (FP) PO ONE (21:51)
[2023-10-31] MEDS: levETIRAcetam 500 MG TABLET (FP) PO SCH (21:51)
[2023-11-01] MEDS ORDERED: LORazepam 0.5 MG TABLET PO PRN
[2023-11-01] MEDS: LORazepam 0.5 MG TABLET PO SCH (05:15)
[2023-11-01] MEDS: ACAMPROSATE CALCIUM 333 MG TABLET.DR PO SCH (14:01)
[2023-11-01] MEDS ORDERED: MIRTAZAPINE 15 MG TABLET (FP) ONE (21:18)
[2023-11-02] MEDS: LORazepam 0.5 MG TABLET PO ONE (05:32)
[2023-11-02 09:03] VITALS: BP 122/76; PULSE 68; RESP 18; TEMP 97.7
== END 2023-11-02 10:51 | disposition home or self-care (01) | DRG 775 ==
LOC: YASAS 23:20 → Y3N 10-29 01:05
PROVIDERS: ADMIT Allergy & Immunology; ATTEND Psychiatry & Neurology Pain Medicine
PROC: HZ2ZZZZ Detoxification Services for Substance Abuse Treatment (ICD-10-PCS; principal; 2023-10-29)
DX: F10.230 Alcohol dependence with withdrawal, uncomplicated (principal); F12.20 Cannabis dependence, uncomplicated; F17.213 Nicotine dependence, cigarettes, with withdrawal; F19.980 Other psychoactive substance use, unspecified with psychoactive substance-induced anxiety disorder; F25.9 Schizoaffective disorder, unspecified; F31.9 Bipolar disorder, unspecified; I10 Essential (primary) hypertension; J45.20 Mild intermittent asthma, uncomplicated; R60.0 Localized edema; E78.6 Lipoprotein deficiency; J06.9 Acute upper respiratory infection, unspecified; G40.909 Epilepsy, unspecified, not intractable, without status epilepticus; K08.89 Other specified disorders of teeth and supporting structures; Z86.19 Personal history of other infectious and parasitic diseases; Z88.8 Allergy status to other drugs, medicaments and biological substances; Z91.013 Allergy to seafood
CPT/HCPCS: 36415; 80053; 80305; 80307; 85027; 86593; 86780; 87389; 93005; 93010; Q0162

== ENCOUNTER 2024-06-01 12:17 | Inpatient (IN) | payer OTHER ==
[2024-06-01 13:19] VITALS: BMI 24.1
[2024-06-01] MEDS ORDERED: POLYETHYLENE GLYCOL (HEALTHYLAX) 3350 17 GM PACKET PO PRN (13:37)
[2024-06-01] MEDS ORDERED: NALOXONE (NARCAN) HCL 4 MG/0.1 ML SPRAY NS PRN (13:37)
[2024-06-01] MEDS ORDERED: BISMUTH SUBSALICYLATE 524 MG/30 ML PO PRN (13:37)
[2024-06-01] MEDS ORDERED: MAGNESIUM HYDROX 2400MG/30ML ORAL SUSPENSION 30 ML CUP PO PRN (13:37)
[2024-06-01] MEDS ORDERED: IBUPROFEN 400 MG TABLET (FP) PO PRN (13:37)
[2024-06-01] MEDS ORDERED: ONDANSETRON *ODT* 4 MG TABLET SL PRN (13:37)
[2024-06-01] MEDS ORDERED: guaiFENesin 600 MG TABLET.ER (FP) PO PRN (13:37)
[2024-06-01] MEDS ORDERED: BENZONATATE 200 MG CAPSULE PO PRN (13:37)
[2024-06-01] MEDS ORDERED: BENZOCAINE/MENTHOL (CHLORASEPTIC ) LOZENGE MM PRN (13:37)
[2024-06-01] MEDS ORDERED: LOPERAMIDE HCL 2 MG CAPSULE PO PRN (13:37)
[2024-06-01] MEDS ORDERED: amLODIPine BESYLATE 5 MG TABLET (FP) ONE (15:51)
[2024-06-01] MEDS ORDERED: LORazepam 1 MG TABLET ONE (15:52)
[2024-06-01] MEDS: LORazepam 1 MG TABLET PO PRN (15:54)
[2024-06-01] MEDS: amLODIPine BESYLATE 10 MG TABLET (FP) PO SCH (15:54)
[2024-06-01] MEDS: IBUPROFEN 600 MG TABLET (FP) PO PRN (17:14)
[2024-06-01] MEDS: BUDESONIDE/FORMETEROL FUMARATE 80/4.5 mcg INHALER IH SCH (22:01)
[2024-06-01] MEDS: MIRTAZAPINE 15 MG TABLET (FP) PO SCH (22:01)
[2024-06-01] MEDS: MELATONIN 5 MG TABLETS PO SCH (22:02)
[2024-06-01] MEDS: THIAMINE 100 MG TABLET PO SCH (22:02)
[2024-06-01] MEDS: LORazepam 2 MG TABLET PO SCH (22:04)
[2024-06-01] MEDS: DICYCLOMINE HCL 10 MG CAPSULE PO PRN (22:04)
[2024-06-02] MEDS: HYDROCHLOROTHIAZIDE 12.5 MG CAPSULE (FP) PO SCH (10:21)
[2024-06-02] MEDS: NALTREXONE HCL 50 MG TABLET PO SCH (10:22)
[2024-06-02] MEDS: PRENATAL VITAMINS W/ FOLIC ACID TABLET (FP) PO SCH (10:22)
[2024-06-02 11:37] LABS: POTASSIUM 3.5 mmol/L (3.5-5.1)
[2024-06-02 11:48] LABS: CALCIUM 8.5 mg/dL (8.5-10.1)
[2024-06-02 11:49] LABS: ALBUMIN 3.4 g/dl (3.4-5.0); BLOOD UREA NITROGEN 19.4 mg/dL (7-18)
[2024-06-02 11:55] LABS: BILIRUBIN,TOTAL 0.4 mg/dL (0.2-1); TOT PROT 6.1 g/dl (6.4-8.2)
[2024-06-02 12:21] LABS: MCH 32.9 pg (25.7-33.7); MCHC 33.3 g/dl (32.0-35.9); MEAN CELL VOLUME 98.7 fl (80-96); PLATELET COUNT 254 10^3/uL (134-434); RBC 2.43 M/mm3 (4.00-5.60); RDW 16.5 % (11.9-15.9); WHITE BLOOD COUNT 8.5 K/mm3 (4.0-10.0)
[2024-06-02] MEDS: METHOCARBAMOL 500 MG TABLET PO PRN (13:13)
[2024-06-02] MEDS: ACETAMINOPHEN 325 MG TABLET (FP) PO PRN (13:13)
[2024-06-02] MEDS: hydrOXYzine PAMOATE 25 MG CAPSULE (FP) PO PRN (13:13)
[2024-06-02] MEDS: MAG HYDROX/AL HYDROX/SIMETH 30 ML UNIT-DOSE CUP PO PRN (15:10)
[2024-06-02] MEDS: QUEtiapine FUMARATE 50 MG TABLET PO SCH (22:04)
[2024-06-03] MEDS: LORazepam 1 MG TABLET PO SCH (05:18)
[2024-06-03] MEDS: HYDROCHLOROTHIAZIDE 12.5 MG CAPSULE (FP) PO ONE (07:56)
[2024-06-03] MEDS: amLODIPine BESYLATE 10 MG TABLET (FP) PO ONE (07:58)
[2024-06-03] MEDS: FERROUS SO4 325 MG TABLET (FP) PO SCH (10:06)
[2024-06-04] MEDS ORDERED: LORazepam 0.5 MG TABLET PO PRN
[2024-06-04] MEDS: LORazepam 0.5 MG TABLET PO SCH (05:22)
[2024-06-04] MEDS: amLODIPine BESYLATE 10 MG TABLET (FP) PO SCH (10:03)
[2024-06-04] MEDS: HYDROCHLOROTHIAZIDE 12.5 MG CAPSULE (FP) PO SCH (10:03)
[2024-06-04] MEDS: ALBUTEROL SO4 HFA INHALER IH PRN (20:27)
[2024-06-05] MEDS: LORazepam 0.5 MG TABLET PO ONE (05:19)
[2024-06-05 09:02] VITALS: RESP 18
[2024-06-05 13:01] VITALS: BP 138/87; PULSE 86; TEMP 97.6
== END 2024-06-05 13:55 | disposition other institution (70) | DRG 775 ==
LOC: YASAS 12:17 → Y3N 16:07
PROVIDERS: ADMIT Allergy & Immunology; ATTEND Allergy & Immunology
PROC: HZ2ZZZZ Detoxification Services for Substance Abuse Treatment (ICD-10-PCS; principal; 2024-06-01)
DX: F10.230 Alcohol dependence with withdrawal, uncomplicated (principal); F12.20 Cannabis dependence, uncomplicated; F25.9 Schizoaffective disorder, unspecified; F19.24 Other psychoactive substance dependence with psychoactive substance-induced mood disorder; I10 Essential (primary) hypertension; J45.20 Mild intermittent asthma, uncomplicated; J30.2 Other seasonal allergic rhinitis; R60.0 Localized edema; Z86.59 Personal history of other mental and behavioral disorders; Z88.8 Allergy status to other drugs, medicaments and biological substances
CPT/HCPCS: 36415; 80053; 80305; 80307; 85027; 86593; 86780; 87811; 93005; 93010

== ENCOUNTER 2024-06-05 13:09 | Inpatient (IN) | payer OTHER ==
[2024-06-05] MEDS ORDERED: IBUPROFEN 400 MG TABLET (FP) PO PRN (14:17)
[2024-06-05] MEDS ORDERED: MAGNESIUM HYDROX 2400MG/30ML ORAL SUSPENSION 30 ML CUP PO PRN (14:17)
[2024-06-05] MEDS ORDERED: POLYETHYLENE GLYCOL (HEALTHYLAX) 3350 17 GM PACKET PO PRN (14:17)
[2024-06-05] MEDS ORDERED: guaiFENesin 600 MG TABLET.ER (FP) PO PRN (14:17)
[2024-06-05] MEDS ORDERED: NALOXONE (NARCAN) HCL 4 MG/0.1 ML SPRAY NS PRN (14:17)
[2024-06-05] MEDS ORDERED: BENZONATATE 200 MG CAPSULE PO PRN (14:17)
[2024-06-05] MEDS ORDERED: NALOXONE HCL 0.4 MG/ML VIAL IVPUSH PRN (14:17)
[2024-06-05] MEDS ORDERED: BENZOCAINE/MENTHOL (CHLORASEPTIC ) LOZENGE MM PRN (14:17)
[2024-06-05] MEDS: hydrOXYzine PAMOATE 25 MG CAPSULE (FP) PO PRN (17:58)
[2024-06-05] MEDS: MELATONIN 5 MG TABLETS PO SCH (21:02)
[2024-06-05] MEDS: IBUPROFEN 600 MG TABLET (FP) PO PRN (21:02)
[2024-06-05] MEDS: THIAMINE 100 MG TABLET PO SCH (21:02)
[2024-06-05] MEDS: MIRTAZAPINE 15 MG TABLET (FP) PO SCH (21:02)
[2024-06-05] MEDS: QUEtiapine FUMARATE 50 MG TABLET PO SCH (21:02)
[2024-06-05] MEDS: BUDESONIDE/FORMETEROL FUMARATE 80/4.5 mcg INHALER IH SCH (21:03)
[2024-06-06] MEDS: MAG HYDROX/AL HYDROX/SIMETH 30 ML UNIT-DOSE CUP PO PRN (04:56)
[2024-06-06] MEDS: PRENATAL VITAMINS W/ FOLIC ACID TABLET (FP) PO SCH (10:46)
[2024-06-06] MEDS: amLODIPine BESYLATE 10 MG TABLET (FP) PO SCH (10:46)
[2024-06-06] MEDS: FERROUS SO4 325 MG TABLET (FP) PO SCH (10:46)
[2024-06-06] MEDS: ALBUTEROL SO4 HFA INHALER IH PRN (10:49)
[2024-06-06] MEDS: amLODIPine BESYLATE 10 MG TABLET (FP) PO ONE (11:25)
[2024-06-07 09:02] LABS: POTASSIUM 4.3 mmol/L (3.5-5.1)
[2024-06-07 09:25] LABS: ALBUMIN 3.2 g/dl (3.4-5.0)
[2024-06-07 09:27] LABS: BLOOD UREA NITROGEN 13.4 mg/dL (7-18); CALCIUM 8.8 mg/dL (8.5-10.1)
[2024-06-07 09:28] LABS: CREATININE 0.7 mg/dL (0.55-1.3)
[2024-06-07 09:29] LABS: BILIRUBIN,TOTAL 0.1 mg/dL (0.2-1)
[2024-06-07 09:57] LABS: HEMATOCRIT 27.1 % (40.1-51.0); HEMOGLOBIN 8.6 g/dL (13.7-17.5); MCHC 31.7 g/dl (32.3-36.5); MEAN CELL VOLUME 99.6 fl (79.0-92.2); MEAN PLT VOLUME 9.9 fl (9.4-12.4); PLATELET COUNT 336 x10^3/uL (163-337); RDW 14.6 % (12.2-16.1)
[2024-06-07] MEDS: LACTULOSE 20 GM/30 ML UDC (FOR ORAL USE ONLY) PO SCH (14:55)
[2024-06-08] MEDS: ACETAMINOPHEN 325 MG TABLET (FP) PO PRN (21:20)
[2024-06-10] MEDS: LACTULOSE 20 GM/30 ML UDC (FOR ORAL USE ONLY) PO SCH (14:15)
[2024-06-10] MEDS: DISULFIRAM 250 MG TABLET PO SCH (14:44)
[2024-06-10] MEDS: METHOCARBAMOL 500 MG TABLET PO PRN (21:17)
[2024-06-11] MEDS: VITAMINS A AND D TOPICAL OINTMENT TP SCH (17:08)
[2024-06-12] MEDS: METHOCARBAMOL 500 MG TABLET PO PRN (11:20)
[2024-06-12] MEDS: LIDOCAINE 5% TOPICAL PATCH TP SCH (15:10)
[2024-06-12] MEDS: LIDOCAINE PATCH REMOVAL MC SCH (21:23)
[2024-06-12] MEDS: LIDOCAINE 2.5%/PRILOCAINE 2.5% 30 GRAM TUBE TP SCH (21:25)
[2024-06-14] MEDS: METHOCARBAMOL 500 MG TABLET PO PRN (13:38)
[2024-06-15] MEDS ORDERED: LIDOCAINE 2.5%/PRILOCAINE 2.5% 30 GRAM TUBE TP PRN (08:39)
[2024-06-15 11:28] LABS: HEMOGLOBIN 10.3 g/dL (13.7-17.5); MCHC 31.2 g/dl (32.3-36.5); MEAN CELL VOLUME 98.5 fl (79.0-92.2); MEAN PLT VOLUME 9.8 fl (9.4-12.4); PLATELET COUNT 497 x10^3/uL (163-337); RDW 14.6 % (12.2-16.1)
[2024-06-15 11:33] LABS: INR 0.95 (0.83-1.09); PROTHROMBIN TIME (PATIENT) 10.4 SEC (9.7-13.0)
[2024-06-15 12:01] LABS: POTASSIUM 4.3 mmol/L (3.5-5.1)
[2024-06-15 12:03] LABS: BLOOD UREA NITROGEN 17.2 mg/dL (7-18); CALCIUM 9.3 mg/dL (8.5-10.1)
[2024-06-15 12:04] LABS: ALBUMIN 3.6 g/dl (3.4-5.0)
[2024-06-15 12:07] LABS: CREATININE 0.8 mg/dL (0.55-1.3)
[2024-06-15 12:08] LABS: BILIRUBIN,TOTAL 0.3 mg/dL (0.2-1); TOT PROT 6.8 g/dl (6.4-8.2)
[2024-06-15] MEDS: IBUPROFEN 400 MG TABLET (FP) PO PRN (17:11)
[2024-06-19] MEDS: LOPERAMIDE HCL 2 MG CAPSULE PO PRN (14:12)
[2024-06-19] MEDS ORDERED: BISMUTH SUBSALICYLATE 524 MG/30 ML PO PRN (15:56)
[2024-06-19] MEDS: LIDOCAINE 2.5%/PRILOCAINE 2.5% (5 Gram/TUBE) TP PRN (21:48)
[2024-06-21] MEDS: VITAMINS A AND D TOPICAL OINTMENT TP PRN (10:24)
[2024-06-25 05:46] VITALS: RESP 18
[2024-06-25 12:18] LABS: HIV INTERPRETATION NEGATIVE (NEGATIVE)
[2024-06-26 05:20] VITALS: TEMP 9703
[2024-06-26 09:17] VITALS: BP 139/87; PULSE 97
== END 2024-06-26 09:45 | disposition home or self-care (01) | DRG 772 ==
LOC: YASAS 13:09 → Y3NR 13:11 → Y3W 06-08 10:13
PROVIDERS: ADMIT Psychiatry & Neurology Pain Medicine; ATTEND Psychiatry & Neurology Pain Medicine
PROC: HZ42ZZZ Group Counseling for Substance Abuse Treatment, Cognitive-Behavioral (ICD-10-PCS; principal; 2024-06-05)
DX: F11.20 Opioid dependence, uncomplicated (principal); F10.20 Alcohol dependence, uncomplicated; F14.20 Cocaine dependence, uncomplicated; F12.20 Cannabis dependence, uncomplicated; F17.210 Nicotine dependence, cigarettes, uncomplicated; F25.9 Schizoaffective disorder, unspecified; F31.9 Bipolar disorder, unspecified; F19.24 Other psychoactive substance dependence with psychoactive substance-induced mood disorder; F43.10 Post-traumatic stress disorder, unspecified; D64.9 Anemia, unspecified; I10 Essential (primary) hypertension; J45.20 Mild intermittent asthma, uncomplicated; J30.2 Other seasonal allergic rhinitis; B35.3 Tinea pedis; M17.12 Unilateral primary osteoarthritis, left knee; R19.7 Diarrhea, unspecified; Z79.891 Long term (current) use of opiate analgesic
CPT/HCPCS: 36415; 73130-TC-LT-FY; 73560-TC-LT-FY; 80053; 82140; 82652; 83735; 85027; 85610; 86803; 87389; 87491; 87591; 87661; 87811

== ENCOUNTER 2024-11-13 12:56 | Inpatient (IN) | payer OTHER ==
[2024-11-13] MEDS ORDERED: BENZOCAINE/MENTHOL (CHLORASEPTIC ) LOZENGE MM PRN (17:20)
[2024-11-13] MEDS ORDERED: BENZONATATE 200 MG CAPSULE PO PRN (17:20)
[2024-11-13] MEDS ORDERED: MAGNESIUM HYDROX 2400MG/30ML ORAL SUSPENSION 30 ML CUP PO PRN (17:20)
[2024-11-13] MEDS ORDERED: guaiFENesin 600 MG TABLET.ER (FP) PO PRN (17:20)
[2024-11-13] MEDS ORDERED: POLYETHYLENE GLYCOL (HEALTHYLAX) 3350 17 GM PACKET PO PRN (17:20)
[2024-11-13] MEDS: ALBUTEROL SO4 HFA INHALER IH PRN (18:13)
[2024-11-13] MEDS: hydrOXYzine PAMOATE 25 MG CAPSULE (FP) PO PRN (18:14)
[2024-11-13] MEDS: THIAMINE 100 MG TABLET PO SCH (21:23)
[2024-11-13] MEDS: levETIRAcetam 500 MG TABLET (FP) PO SCH (21:23)
[2024-11-13] MEDS: MIRTAZAPINE 15 MG TABLET (FP) PO SCH (21:23)
[2024-11-13] MEDS: MELATONIN 5 MG TABLETS PO SCH (21:23)
[2024-11-13] MEDS: BUDESONIDE/FORMETEROL FUMARATE 80/4.5 mcg INHALER IH SCH (21:24)
[2024-11-14] MEDS: amLODIPine BESYLATE 10 MG TABLET (FP) PO SCH (09:40)
[2024-11-14] MEDS: PRENATAL VITAMINS W/ FOLIC ACID TABLET (FP) PO SCH (09:40)
[2024-11-14] MEDS: METHOCARBAMOL 500 MG TABLET PO PRN (12:51)
[2024-11-14] MEDS: MAG HYDROX/AL HYDROX/SIMETH 30 ML UNIT-DOSE CUP PO PRN (12:52)
[2024-11-14] MEDS: IBUPROFEN 600 MG TABLET (FP) PO PRN (15:51)
[2024-11-15] MEDS: PRENATAL VITAMINS W/ FOLIC ACID TABLET (FP) PO SCH (10:21)
[2024-11-21] MEDS: IBUPROFEN 400 MG TABLET (FP) PO PRN (06:27)
[2024-11-23] MEDS: ALBUTEROL SO4 0.083% IH SOL 2.5 MG/3 ML VIAL.NEB. NEB PRN (18:54)
[2024-11-26 11:03] LABS: HIV INTERPRETATION NEGATIVE (NEGATIVE)
[2024-11-26] MEDS: HYDROCHLOROTHIAZIDE 12.5 MG CAPSULE (FP) PO SCH (17:00)
[2024-11-26] MEDS: LOPERAMIDE HCL 2 MG CAPSULE PO PRN (18:05)
[2024-11-26] MEDS: ACETAMINOPHEN 325 MG TABLET (FP) PO PRN (21:37)
[2024-11-27] MEDS: LIDOCAINE 5% TOPICAL PATCH TP SCH (10:06)
[2024-11-27] MEDS: ASPIRIN 81 MG CHEWABLE TABLETS PO SCH (15:32)
[2024-11-27] MEDS: LIDOCAINE PATCH REMOVAL MC SCH (21:29)
[2024-11-29] MEDS: SIMETHICONE 80 MG TAB.CHEW (FP) PO PRN (15:39)
[2024-12-02] MEDS: BACITRACIN 0.9 GM PACKET TP PRN (10:19)
[2024-12-03] MEDS: FLU VACC TS2025-26(6MOS UP)/PF 45 MCG/0.5 ML SYRINGE IM ONE (11:08)
[2024-12-03] MEDS ORDERED: PNEUMOCOCCAL 23 VACCINE 0.5 ML VIAL IM ONE (12:00)
[2024-12-03] MEDS: PNEUMOC 20-VAL CONJ-DIP CRM/PF 0.5 ML SYRINGE IM ONE (15:37)
[2024-12-04 09:12] VITALS: BP 135/86; PULSE 92; RESP 17; TEMP 97.1
== END 2024-12-04 09:43 | disposition home or self-care (01) | DRG 772 ==
LOC: YASAS 12:56 → Y3NR 12:59 → Y5N 11-14 12:10
PROVIDERS: ADMIT Psychiatry & Neurology Pain Medicine; ATTEND Psychiatry & Neurology Pain Medicine
PROC: HZ42ZZZ Group Counseling for Substance Abuse Treatment, Cognitive-Behavioral (ICD-10-PCS; principal; 2024-11-13)
DX: F10.20 Alcohol dependence, uncomplicated (principal); F12.10 Cannabis abuse, uncomplicated; F31.9 Bipolar disorder, unspecified; G47.00 Insomnia, unspecified; I10 Essential (primary) hypertension; J45.20 Mild intermittent asthma, uncomplicated; Z87.891 Personal history of nicotine dependence; Z86.69 Personal history of other diseases of the nervous system and sense organs; Z87.19 Personal history of other diseases of the digestive system; Z88.8 Allergy status to other drugs, medicaments and biological substances
CPT/HCPCS: 36415; 84484; 87389; 87637-QW; 90656; 90677; 93005; 93010; 94640